=== PATIENT | female | born 1990 | race Caucasian/White ===

== ENCOUNTER → 2020-06-23 16:00 | Outpatient (CLI) | payer OTHER, SELFPAY ==
[2020-06-23 17:01] LABS: Add Manual Diff / Slide Review NO; Basophils Absolute Auto 0 /uL (0-100); Basophils Percent Auto 0.4 % (0-2); Eosinophils Absolute Auto 0 /uL (0-450); Eosinophils Percent Auto 0.6 % (2-4); Hematocrit 40.6 % (36-46); Hemoglobin 13.8 g/dL (12.0-16.0); Lymphocytes Absolute Auto 2200 /uL (1100-4500); Mean Corpuscular Hemoglobin 30.6 PG (26-34); Monocytes Absolute Auto 600 /uL (0-900); Monocytes Percent Auto 6.7 % (3-14); Neutrophils Absolute Auto 5500 /uL (1500-7000); Neutrophils Percent Auto 66.3 % (50-75); Platelet Count 292 X10^3/uL (150-400); Red Blood Cell Count 4.51 X10^6/uL (4.0-5.2); Red Cell Distribution Width 12.2 % (11.6-14.8); White Blood Cell Count 8.3 X10^3/uL (4.5-11.0)
[2020-06-23 17:24] LABS: Alanine Aminotransferase 12 IU/L (<35); Albumin 4.8 g/dL (3.5-5.0); Albumin Globulin Ratio 1.4 (1.0-2.8); Alkaline Phosphatase 55 U/L (38-126); Aspartate Aminotransferase 24 IU/L (14-36); Bilirubin Total 0.5 mg/dL (0.2-1.3); Blood Urea Nitrogen 13 mg/dL (7-17); Calcium 9.7 mg/dL (8.4-10.2); Carbon Dioxide 26 mmol/L (22-32); Chloride 106 mmol/L (98-107); Estimated Glomerular Filt Rate > 60.0 mL/min (>60); Globulin 3.5 g/dL (1.7-4.1); Glucose 94 mg/dL (70-100); HEMOLYSIS < 15 (0-50); Potassium 4.4 mmol/L (3.4-5.1); Sodium 137 mmol/L (137-145); Total Protein 8.3 g/dL (6.3-8.2)
[2020-06-23 17:44] LABS: Free T4, Direct Thyroxine 1.14 ng/dL (0.78-2.19)
[2020-06-23 17:58] LABS: Thyroid Stimulating Hormone 0.803 uIU/mL (0.47-4.68)
== END ==
PROVIDERS: PCP Registered Nurse; Referring Provider Registered Nurse; Visit Provider Registered Nurse
DX: R53.83 Other fatigue (principal)
CPT/HCPCS: 36415; 80053; 84439; 84443; 85025

== ENCOUNTER → 2020-06-29 07:21 | Outpatient (CLI) | payer OTHER, SELFPAY ==
--- NOTE | 2020-06-29 07:22 | DI.US.S_ITS ---
PROCEDURE: US PELVIC COMPLETE INDICATIONS: ABDOMINAL CRAMPING. ?ENDOMETRIOSIS. TECHNIQUE: Real-time scanning was performed of the pelvic organs, with image documentation. Additional endovaginal scanning was necessary due to incomplete visualization of the adnexal and endometrial structures by transabdominal scanning. COMPARISON: None. FINDINGS: Transabdominal scanning: Limited scanning through the kidneys shows no hydronephrosis. No pathologic free abdominal or pelvic fluid. Endovaginal scanning: Uterus/cervix: The uterus measures 7.0 x 4.7 x 2.6 centimeters. Endometrial thickness is 2.9 millimeters. No uterine fibroids. Several nabothian cysts are identified. Ovaries: The right ovary measures 3.6 x 3.2 x 2.4 centimeters. The right ovary has multiple cysts, the largest measuring 2.3 x 1.5 x 1.0 centimeters. The left ovary measures 3.9 x 2.6 x 1.8 centimeters. The left ovary has a subcentimeter follicle. Adnexa: No fluid in the adnexa. There is a complex ill-defined hypoechoic mass measuring 3.0 x 4.8 x 3.6 centimeters in the left lower quadrant seen separate from the ovary. This demonstrates no color flow within however is technically difficult to evaluate due to overlying bowel gas. Kidneys: The right kidney measures 11.6 centimeters in length. The left kidney measures 10.7 centimeters in length. There is no solid or cystic mass, hydronephrosis, or calculi. IMPRESSION: 1. Multiple large right ovarian cysts, largest measuring 2.3 x 1.5 x 1.0 centimeters. 2. Normal uterus and left ovary. 3. Possible ill-defined hypoechoic mass measuring 3.0 x 4.8 x 3.6 centimeters in the left lower quadrant, separate from the ovary. This is not well visualized and imaging is limited by overlying bowel gas. It is possible this could be a loop of bowel. Given correlation with patient's location of pain, recommend further imaging with CT of the pelvis. Dictated by: Clemente Desai M.D. on 06/29/2020 at 9:15 Approved by: Clemente Desai M.D. on 06/29/2020 at 9:26
== END ==
PROVIDERS: PCP Registered Nurse; Referring Provider Registered Nurse; Visit Provider Registered Nurse
DX: R10.9 Unspecified abdominal pain (principal); N80.9 Endometriosis, unspecified; N83.201 Unspecified ovarian cyst, right side; N88.8 Other specified noninflammatory disorders of cervix uteri
CPT/HCPCS: 76856

== ENCOUNTER → 2020-06-30 11:57 | Outpatient (CLI) | payer OTHER, SELFPAY ==
[2020-06-30 14:28] LABS: Cancer Antigen 125 13.5 U/mL (0-35)
== END ==
PROVIDERS: PCP Registered Nurse; Referring Provider Obstetrics & Gynecology; Visit Provider Obstetrics & Gynecology
DX: R19.00 Intra-abdominal and pelvic swelling, mass and lump, unspecified site (principal)
CPT/HCPCS: 36415; 86304

== ENCOUNTER 2020-07-07 01:30 | Emergency (ER) | payer OTHER, SELFPAY ==
--- NOTE | 2020-07-07 01:34 | ED_ITS ---
HPI - Abdominal Pain General Chief Complaint: Abdominal Pain Stated Complaint: ABDOMINAL PAIN X 1 MONTH Time Seen by Provider: 07/07/20 01:33 Source: patient and old records reviewed Mode of arrival: Ambulatory Limitations: no limitations History of Present Illness HPI narrative: This is a 29-year-old female comes with complaint of abdominal pain has been increasing over the past month. Patient states that it is intermittent. It starts kind of in the lower abdomen and then radiates throughout. She also has pain in her back. She states she had initially been worked up for back pain and even got which sounds like potentially a myelogram or facet injection. Patient states she had ultrasound imaging which showed a possible mass and she has felt like there was a mass in her lower abdomen as well. Patient has not fevers she does have nausea intermittently but denies vomiting. She has had constipated stools, no melena or hematochezia. No dysuria, she has had a sense of urgency and incomplete emptying but with only a small amount of urine, denies any vaginal bleeding or discharge. Patient states she has very irregular. Sometimes up to 2 monthly. She was being worked up possibly for endometriosis she had not had laparoscopic evaluation yet. She states her initial workup began in [place] and then she moved to this area where she is being followed by Rebecca Rodriguez. Patient denies any prior surgeries. Has a history of GERD and fibromyalgia. She states that she took ibuprofen 200 mg during the day. She states she does not normally take any pain medication. Related Data Previous Rx's Medication Instructions Recorded docusate sodium [Colace] 100 mg PO DAILY PRN #10 cap 07/07/20 Allergies Allergy/AdvReac Type Severity Reaction Status Date / Time No Known Drug Allergies Allergy Unverified 06/23/20 15:20 Review of Systems Review of Systems ROS Unobtainable: All systems reviewed & are unremarkable except as noted in HPI and below Patient History Social History Smoking Status: Former smoker Smoking Status: Former smoker Exam Narrative Exam Narrative: GENERAL: Alert and oriented x three, thin, well-appearing female in mild distress. HEENT: Head normocephalic, atraumatic, EOMI, pupils reactive, face symmetric, moist mucous membranes NECK: Supple, full range of motion CARDIOVASCULAR: Regular rate and rhythm without murmurs, rubs or gallops. RESPIRATORY: Breath sounds equal bilaterally, no wheezes rales or rhonchi. ABDOMEN: Soft, very mild tenderness in the left lower quadrant. Nondistended. Normoactive bowel sounds all 4 quadrants. No guarding or rebound, rigidity, no mass, no bruit. : No CVA tenderness EXTREMITIES: Normal range of motion, no clubbing or edema. Neurovascularly intact NEUROLOGICAL: Cranial nerves II through XII grossly intact. Moving all extremities SKIN: Warm, dry, no petechiae, no rashes or lesions. Initial Vital Signs Initial Vital Signs: Vital Signs Temperature 97.4 F L 07/07/20 01:40 Pulse Rate 82 07/07/20 01:40 Respiratory Rate 16 07/07/20 01:40 Blood Pressure 129/77 07/07/20 01:40 Pulse Oximetry 97 07/07/20 01:40 Course Orders Ordered: ED Orders 07/07/20 01:43 Complete Blood Count AUTO DIFF Stat Comprehensive Metabolic Panel Stat Lipase Stat 07/07/20 01:53 CT abdomen pelvis w con Stat Discontinued Medications Sodium Chloride (Normal Saline 0.9%) 1,000 mls @ 1,000 mls/hr IV BOLUS ONE Stop: 07/07/20 02:54 Last Admin: 07/07/20 02:39 Dose: 1,000 mls/hr Documented by: Vital Signs Vital signs: Vital Signs - 8 hr 07/07/20 01:40 Temperature 97.4 F L Pulse Rate 82 Respiratory Rate 16 Blood Pressure 129/77 Pulse Oximetry 97 MDM - Abdominal Pain Lab Data Attestation: I reviewed the patient's lab results. Result diagrams: 07/07/20 01:43 07/07/20 01:43 Labs: Lab Results 07/07/20 07/07/20 Range/Units 01:43 01:43 WBC 7.2 (4.5-11.0) X10^3/uL RBC 4.64 (4.0-5.2) X10^6/uL Hgb 13.8 (12.0-16.0) g/dL Hct 41.9 (36-46) % MCV 90.3 (80-100) fL MCH 29.6 (26-34) PG MCHC 32.8 (30-36) % RDW 12.1 (11.6-14.8) % Plt Count 279 (150-400) X10^3/uL Neut % (Auto) 52.0 (50-75) % Lymph % (Auto) 39.0 (25-40) % [place] % (Auto) 7.0 (3-14) % Eos % (Auto) 1.5 L (2-4) % Baso % (Auto) 0.5 (0-2) % Neut # (Auto) 3800 (1080-7012) /uL Lymph # (Auto) 2800 (2750-9864) /uL [place] # (Auto) 500 (0-900) /uL Eos # (Auto) 100 (0-450) /uL Baso # (Auto) 0 (0-100) /uL Sodium 138 (137-145) mmol/L Potassium 3.3 L (3.4-5.1) mmol/L Chloride 105 (98-107) mmol/L Carbon Dioxide 29 (22-32) mmol/L BUN 10 (7-17) mg/dL Creatinine 0.50 L (0.52-1.04) mg/dL Estimated GFR > 60.0 (>60) mL/min BUN/Creatinine Ratio 20.0 (6-22) Glucose 91 (70-100) mg/dL Calcium 9.3 (8.4-10.2) mg/dL Total Bilirubin 0.4 (0.2-1.3) mg/dL AST 24 (14-36) IU/L ALT 17 (<35) IU/L Alkaline Phosphatase 52 (38-126) U/L Total Protein 8.0 (6.3-8.2) g/dL Albumin 4.7 (3.5-5.0) g/dL Globulin 3.3 (1.7-4.1) g/dL Albumin/Globulin Ratio 1.4 (1.0-2.8) Lipase 174 (23-300) U/L Point of care testing: Point of Care Testing Test Results Negative Urine Dip Bedside Urine Glucose Negative Bedside Urine Bilirubin - Negative Bedside Urine Ketone - Negative Urine Specific [place] 1.010 Bedside Urine Occult Blood - Negative Bedside Urine pH 6.0 Bedside Urine Protein - Negative Bedside Urine Urobilinogen - Negative Bedside Urine Nitrite - Negative Bedside Urine Leukocytes - Negative Esterase Imaging Data CT scan - abdomen/pelvis: Radiologist's Impression: Complex cystic lesion or 2 adjacent cyst in the right adnexa, small amount of simple free fluid. It reaches the cervix is somewhat ill-defined and thickened, correlate with pelvic exam. Large amount of colonic stool. [facility] Narrative Medical decision making narrative: Patient imaging was reviewed and she had a pelvic ultrasound on 06/29/2020, showing multiple large right ovarian cysts the largest measuring 2.3 x 1.5 x 1 cm. Normal uterus and left ovary with a possible ill-defined hypoechoic mass measuring 3 x 4.8 x 3.6 cm in the left lower quadrant separate from the ovary it was not well visualized and imaging was limited by bowel gas. There was a possibly this could be a loop of bowel and was recommended further imaging with CT scan of the pelvis. Patient had labs which were negative including cbc, cmp and ca 125 antigen on 06/23 and 06/30 respectively. Patient is scheduled for a CT abd/pelvis today the and has been drinking barium but was in too much pain and came to the ER for imaging now and pain relief. Patient states pain improved on drive here and de fers any pain medication at this time. [facility] does not show any reports. Patient's CT abdomen pelvis shows right complex cystic lesion as well as a large amount of stool patient has been complaining of constipation. Recommended a stool softener, follow-up with property damage claims adjustor which she is in the process of setting up. Patient has only been taking 200 mg ibuprofen maximum so recommended to increase her dosage and can combine with Tylenol. Discharge Plan Departure Patient Disposition: Home Clinical Impression: Abdominal pain, Adnexal cyst Instructions: DI for Ovarian Cyst Activity Restrictions/Additional Instructions: There is a complex cystic structure in the right adnexa that was also visualized on your imaging earlier this month. I do recommend continuing with serial ultrasound imaging and following up with your care team. You may take Tylenol up to a 1000 mg every 8 hours and or ibuprofen up to 800 mg every 8 hours as needed for pain. I would recommend taking a stool softener such as Colace 100 mg once daily or increasing your fluid intake and fiber intake. Prescription to [facility] in [place]. Return to the ER for fevers, persistent vomiting, severe worsening pain, black o r bloody stools, inability to have a bowel movement or other new or concerning symptoms. Prescriptions: New docusate sodium [Colace] 100 mg capsule 100 mg PO DAILY PRN (Reason: constipation) Qty: 10 RF: 0 Referrals: Rebecca Rodriguez ARNP [Primary Care Provider] -
[2020-07-07 01:40] VITALS: BP 129/77; PULSE 82; RESP 16; TEMP 36.3; O2SAT 97; BMI 21.1
--- NOTE | 2020-07-07 01:53 | DI.CT.S_ITS ---
PROCEDURE: CT ABDOMEN PELVIS W CON INDICATIONS: abdominal pain, possible mass seen in the left pelvis on US imaging, right ovarian cyst TECHNIQUE: After the administration of oral and intravenous contrast, 5 mm thick sections acquired from the diaphragms to the symphysis. 5 mm thick coronal and sagittal reformats were performed. For radiation dose reduction, the following was used: automated exposure control, adjustment of mA and/or kV according to patient size. COMPARISON: [facility], US, US PELVIC COMPLETE, 06/29/2020, 8:03. FINDINGS: Image quality: Excellent. ABDOMEN: Lung bases: Lung bases are clear. Heart size is normal. Solid organs: Evaluation of the liver demonstrates no focal hepatic lesions. The gallbladder appears within normal limits without calcified gallstones. Biliary system is non-dilated. Pancreas enhances normally. No peripancreatic fat stranding or fluid collections. No pancreatic duct dilatation. The spleen is normal in size. No adrenal nodules. Kidneys demonstrate no hydronephrosis. Peritoneum and bowel: Stomach, small bowel, and colon loops are normal in caliber and wall thickness. No evidence of appendicitis. There is a small amount of free fluid in the pelvis which appears within physiologic limits. Nodes and vessels: No retroperitoneal or mesenteric adenopathy. Aorta and inferior vena cava are normal in caliber. Miscellaneous: No ventral hernias. PELVIS: Genitourinary: Bladder wall thickness is normal. There is soft tissue fullness in the region of the cervix. Small nabothian cysts are noted. There is a septated cyst or 2 adjacent cysts within the right ovary measuring up to 3.1 x 2.1 cm in dimension. No discrete left pelvic mass identified to correlate with the finding on ultrasound which may have reflected a bowel loop. Miscellaneous: No inguinal hernias or adenopathy. Bones: No suspicious bony lesions. No vertebral body compression fractures. IMPRESSION: 1. Right adnexal septated cyst or clustered cysts. Findings are nonspecific but likely represent physiologic cysts. 2. No discrete left pelvic mass identified. Consider a follow-up pelvic ultrasound in 6 weeks to demonstrate resolution of right adnexal cysts and previous left pelvic finding. 3. Soft tissue fullness in the region of the cervix is nonspecific but may reflect physiologic changes. Recommend correlation with clinical exam. Or Dictated by: Justin Suarez M.D. on 07/07/2020 at 8:53 Approved by: Justin Suarez M.D. on 07/07/2020 at 9:05
[2020-07-07 01:57] LABS: Add Manual Diff / Slide Review NO; Basophils Absolute Auto 0 /uL (0-100); Basophils Percent Auto 0.5 % (0-2); Eosinophils Absolute Auto 100 /uL (0-450); Eosinophils Percent Auto 1.5 % (2-4); Hematocrit 41.9 % (36-46); Hemoglobin 13.8 g/dL (12.0-16.0); Lymphocytes Absolute Auto 2800 /uL (1100-4500); Mean Corpuscular HGB Conc 32.8 % (30-36); Mean Corpuscular Hemoglobin 29.6 PG (26-34); Mean Corpuscular Volume 90.3 fL (80-100); Monocytes Absolute Auto 500 /uL (0-900); Neutrophils Absolute Auto 3800 /uL (1500-7000); Platelet Count 279 X10^3/uL (150-400); Red Blood Cell Count 4.64 X10^6/uL (4.0-5.2); Red Cell Distribution Width 12.1 % (11.6-14.8); White Blood Cell Count 7.2 X10^3/uL (4.5-11.0)
[2020-07-07 02:08] LABS: Alanine Aminotransferase 17 IU/L (<35); Albumin 4.7 g/dL (3.5-5.0); Albumin Globulin Ratio 1.4 (1.0-2.8); Alkaline Phosphatase 52 U/L (38-126); Aspartate Aminotransferase 24 IU/L (14-36); Bilirubin Total 0.4 mg/dL (0.2-1.3); Blood Urea Nitrogen 10 mg/dL (7-17); Calcium 9.3 mg/dL (8.4-10.2); Carbon Dioxide 29 mmol/L (22-32); Chloride 105 mmol/L (98-107); Estimated Glomerular Filt Rate > 60.0 mL/min (>60); Globulin 3.3 g/dL (1.7-4.1); Glucose 91 mg/dL (70-100); HEMOLYSIS < 15 (0-50); Lipase 174 U/L (23-300); Potassium 3.3 mmol/L (3.4-5.1); Sodium 138 mmol/L (137-145)
[2020-07-07] MEDS: SODIUM CHLORIDE 0.9% 1,000 ML 1000 ML IV (02:39)
[2020-07-07 03:25] VITALS: BP 126/74; PULSE 77; RESP 16; O2SAT 97
== END 2020-07-07 03:39 | disposition home or self-care (01) ==
PROVIDERS: Emergency Provider Emergency Medicine; PCP Registered Nurse
DX: N83.201 Unspecified ovarian cyst, right side (principal); R10.9 Unspecified abdominal pain; M54.9 Dorsalgia, unspecified; R11.0 Nausea; K21.9 Gastro-esophageal reflux disease without esophagitis; M79.7 Fibromyalgia
CPT/HCPCS: 36415; 74177; 80053; 81003; 81025; 83690; 85025; 96360; 99283; 99284; 99285; Q9967

== ENCOUNTER → 2020-09-05 08:49 | Outpatient (CLI) | payer OTHER, SELFPAY ==
[2020-09-05 09:18] LABS: COVID19 -Nasal RAPID Negative (Negative)
== END ==
PROVIDERS: PCP Registered Nurse; Visit Provider Obstetrics & Gynecology
DX: Z01.812 Encounter for preprocedural laboratory examination (principal); Z20.822 Contact with and (suspected) exposure to COVID-19
CPT/HCPCS: 87635

== ENCOUNTER 2020-09-06 08:33 | Day surgery (SDC) | payer OTHER, SELFPAY ==
[2020-09-06] VITALS (10 sets, daily range): BP systolic 112–125; BP diastolic 66–76; PULSE 55–89; RESP 10–16; TEMP 36.4–37; O2SAT 99–100; BMI 22.4
--- NOTE | 2020-09-06 09:41 | P.HP_ITS ---
History of Present Illness History of Present Illness Date Patient Seen: 09/06/20 Time Patient Seen: 09:41 Chief complaint: SDC Narrative: Patient is a 29-year-old 0 who presents for a diagnostic laparoscopy with excision of right ovarian cyst and possible fulguration of endometriosis. This is being done due to an ovarian cyst seen on ultrasound. Also the patient has had pelvic pain with pain with bowel movements and with emptying of her bladder. This pain is worse with her menstrual cycle. There is no chance that the patient is today. Patient History Medical History Chronic back pain Fibromyalgia Rheumatoid arthritis Surgical History [place] teeth extracted Family & Social History Family History Mother Hypertension Grandfather Cancer Grandmother Cancer Melanoma Social History: household members spouse,family Tobacco & Substance use: Smoking Status Former smoker alcohol intake current alcohol intake frequency 0-2 drinks per day Substance Use Type does not use Meds Home Medications and Allergies Home Medications Medication Instructions Recorded Confirmed Type ondansetron 4 mg disintegrating 4 mg PO Q6H PRN #20 tab 09/05/20 09/06/20 Rx tablet Allergies Allergy/AdvReac Type Severity Reaction Status Date / Time diphenhydramine AdvReac ITCHING Verified 09/06/20 09:09 [From Benadryl] Exam Vital Signs (past 8 hours): - 09/06/20 09:11 Temperature 98.6 F Pulse Rate 73 Respiratory Rate 16 Blood Pressure 112/73 Pulse Oximetry 100 Oxygen Delivery Method Room Air Oxygen Flow Rate 0 Narrative Exam Narrative: HEENT: No thyromegaly, no anterior cervical or supraclavicular lymphadenopathy. Lungs:Clear to auscultation bilaterally, no wheezes. Cardiovascular: Regular rate and rhythm, no murmurs, rubs, or gallops. Abdomen: No scars. No hepatosplenomegaly. No masses palpable. External genitalia: Normal Vagina: Normal Cervix: Normal Bimanual exam: 6 Week size anteverted uterus. Mobile. Bilateral uterus sacral tenderness. Right adnexal tenderness. Rectal: No masses. Assessment & Plan Assessment & Plan narrative: Assessment: 29-year-old 0 with a right ovarian cyst and pelvic pain and dysmenorrhea Plan: Diagnostic laparoscopy with excision of right ovarian cyst and possible fulguration of endometriosis The risks, benefits, and alternatives to the procedure were explained to the patient. The risks including bleeding, infection, injury to the bowel, bladder, or ureters. She understands these risks and agrees to proceed. A full par Q was held and consent form was signed. COVID-19 COVID-19 status: Negative Result date/Date tested (Pos, Neg/Pending): 09/05/20 Time Spent With Patient Time with patient: 15-24 minutes
[2020-09-06] MEDS: LACTATED RINGERS 1,000 ML 100 ML IV ×2 (09:42→10:53)
--- NOTE | 2020-09-06 09:45 | PM.PREOP ---
Pre-operative Note COVID-19 COVID-19 status: Negative Result date/Date tested (Pos, Neg/Pending): 09/05/20 Interval Note History & Physical reviewed/Exam performed by Physician: Yes Changes to H&P: No H&P completed within 30 days and has changed as indicated here:: 09/06/20
[2020-09-06] MEDS: BUPIVACAINE 0.5% W/ EPI (PF) 30 ML VIAL INJ (10:38)
--- NOTE | 2020-09-06 11:07 | PM.GYNOP.1 ---
Operative Date/Time/Diagnoses Date of procedure: 09/06/20 Time of procedure: 11:07 Pre-op diagnosis: Pelvic pain Ovarian cysts Post-op diagnosis: same Procedure & Clinicians Procedure: Procedures Operation Date: 09/06/20 09:45 Actual Procedures Side Surgeon p AMBER Laparoscopy, removal of right ovarian cyst Maria Fernanda Garcia MD Indications: Ovarian cysts Pelvic pain Surgeon: Maria Fernanda Garcia Anesthesia Type: General and Local Operative Notes Findings: Six week size anteverted uterus Small right paratubal cyst Two left ovarian cyst, 1 measuring 3 cm, the other measuring 2 cm. These were simple in nature. Normal 2 Normal uterus Normal liver and gallbladder Normal appendix No evidence of endometriosis No evidence of adhesions Closure Type: primary Specimen(s): none Estimated blood loss (mL): 3 Blood products transfused: none Procedure in detail: After informed consent was obtained, the patient was taken to the operating room where she was placed in the dorsal supine position. After adequate general endotracheal anesthesia was achieved, she was placed in the dorsal lithotomy position, and prepped and draped in the usual sterile fashion. A time-out was performed. A bivalve speculum was placed into the vagina and the anterior lip of the cervix was grasped with a single-tooth tenaculum. Cervical os was sequentially dilated until the Zumi uterine manipulator could pass easily into the endometrial cavity. Single-tooth tenaculum was removed from the anterior lip of the cervix. The bivalve speculum was removed from the vagina. Attention was then turned to the abdomen where 6 cc of 0.5% Marcaine with epinephrine were injected in the umbilical fold. A 5 mm incision was made. The Veress needle was placed into the peritoneal cavity, and its placement confirmed by aspiration and drop test. The abdominal cavity was insufflated with 3.8 L of CO2. The Veress needle was removed, and a 5 mm trocar was placed without difficulty. Two other 5 mm incisions were made after 6 cc of 0.5% Marcaine with epinephrine were injected. These incisions were 4 cm lateral to the midline at the level of the umbilicus. Two 5 mm trocars were placed under direct visualization. The probe was used to identify both tubes and ovaries as well as the ovarian fossa. There was a small para tubal cyst on the right. This was cauterized and collapsed with the PlasmaKinetic. The gallbladder, liver, and appendix were visualized and were normal. There was no evidence of endometriosis in the anterior or posterior cul-de-sac or bilateral ovarian fossa. On the left ovary there were 2 cysts. These were drained with point aspiration. Using the PlasmaKinetic the cyst taveras were cauterized until the collapsed. Hemostasis was achieved. The pelvis was irrigated with warm normal saline. There was no bleeding noted. The instruments were removed from the abdomen. The CO2 was allowed to escape. The trocars were removed. The incisions were repaired with 4 0 Biosyn in a subcuticular fashion. Steri-Strips and Allevyn dressings were placed. The Zumi uterine manipulator was removed from the uterus. Sponge, lap, and instrument counts were correct x2. The patient tolerated the procedure well, was taken to PACU in stable condition. Complications: none Post-operative Condition: stable Disposition: PACU Plan for aftercare: Home after recovery
--- NOTE | 2020-09-06 11:09 | SUR.OPER ---
Lithotomy on padded OR bed, head on pillow, arms secured on padded arm boards at <90 degrees abduction. Legs secured in padded yellow fins stirrups.
[2020-09-06] MEDS: ONDANSETRON 4 MG/2 ML INJ IV (11:16)
[2020-09-06] MEDS: HYDROMORPHONE 2 MG INJ IV (11:17)
[2020-09-06] MEDS: OXYCODONE/ACETAMINOPHEN 5/325 TABLET 1 TAB PO (11:40)
--- NOTE | 2020-09-06 13:04 | SUR.PHASEII ---
patient c/o epigastric pain radiating up to sternal area and right shoulder, described as tightness. vss, 117/72 hr 60, 99% on ra. denies sob. Dr. Garcia notified of same. attributes to CO2 gas, no other interventions or orders needed.
== END 2020-09-06 12:48 | disposition home or self-care (01) ==
PROVIDERS: PCP Registered Nurse; Referring Provider Registered Nurse; Visit Provider Obstetrics & Gynecology
PROC: (CPT 58662; principal; 2020-09-06 09:45)
DX: N83.201 Unspecified ovarian cyst, right side (principal); N83.202 Unspecified ovarian cyst, left side; N83.8 Other noninflammatory disorders of ovary, fallopian tube and broad ligament; M79.7 Fibromyalgia
CPT/HCPCS: 58662; 81025; J1100; J1170; J1885; J2250; J2405; J2704; J3010

== ENCOUNTER → 2020-11-15 08:56 | Outpatient (CLI) | payer OTHER, SELFPAY ==
--- NOTE | 2020-11-15 08:57 | DI.US.S_ITS ---
PROCEDURE: US RENAL COMPLETE INDICATIONS: Bladder pain, frequency TECHNIQUE: Real-time scanning was performed of the kidneys and bladder, with image documentation. COMPARISON: [facility], CT, CT ABDOMEN PELVIS W CON, 07/07/2020, 1:59. FINDINGS: Kidneys: Kidneys are normal in size. Right kidney measures 10.9 cm long; left kidney measures 10.3 cm long. Right renal cortical thickness is 1.5 cm; left renal cortical thickness is 1.6 cm. Renal cortical echotexture is normal. No hydronephrosis or nephrolithiasis. No suspicious solid mass lesions. A right-sided column of [place] can be seen. Bladder: Pre-void bladder volume is 467 mL. Post-void residual is 20 mL. Pre-void images demonstrate no intraluminal masses or stones. On pre-void images, both ureteral jets are noted with color Doppler interrogation. (Of note, ureteral jets may not be detectable in up to 25% of cases due to insufficient differences in specific gravity between ureteral and bladder urine). Miscellaneous: No free pelvic fluid. There is a 1.8 cm right ovarian cystic follicle seen, which is considered to be within physiologic limits. IMPRESSION: Negative for hydronephrosis. Small postvoid residual, 20 cc. Dictated by: Som Guadarrama M.D. on 11/15/2020 at 11:54 Approved by: Som Guadarrama M.D. on 11/15/2020 at 12:03
== END ==
PROVIDERS: Family Provider Registered Nurse; PCP Registered Nurse; Referring Provider Registered Nurse; Visit Provider Registered Nurse
DX: R39.89 Other symptoms and signs involving the genitourinary system (principal)
CPT/HCPCS: 76770

== ENCOUNTER 2020-12-22 11:15 | Outpatient (RCR) | payer OTHER, SELFPAY ==
--- NOTE | 2020-10-11 17:22 | PT.OPPOC ---
Addendum entered and electronically signed by Katie Meier, PT 10/13/20 09:28: . Original Note: Physical, Occupational & Speech Therapy At [facility] Current Diagnoses Stiffness of right hip, not elsewhere classified (10/11/20) Stiffness of left hip, not elsewhere classified (10/11/20) Other specified disorders of muscle (10/11/20) Lower abdominal pain, unspecified (10/11/20) Abnormal posture (10/11/20) Visit Care Team Role Provider Type SARAH Kwong Family Provider Advanced Cover Inspector Primary Care Provider Specialty: Medical Address: [address] [place] [address], [facility] Email: [email or web address] Maria Fernanda Garcia MD Attending Provider Physician Referring Provider Specialty: Gynecology CELLO TEACHER Obstetrics Address: [address] [place] [address], [id number] Email: [email or web address] Plan Of Care PT-OP-T Assessment and Plan Start: 10/07/20 18:56 Freq: Status: Active Protocol: Document 10/11/20 14:19 LRN (Rec: 10/11/20 15:11 LRN [id number]) Physical Therapy Assessment Rehab Potential Rehabilitation Potential Good Evaluation Complexity Number of Personal Factors/Comorbidities 1-2 Number of Body Systems Impaired 4 or More Clinical Presentation at Evaluation Evolving Impairments Impairments Activity Tolerance,Posture,ROM ,Soft Tissue Mobility,Strength ,Transfers Goals Three Impairment Pain interferring with sleeping at night (wakes 4x/ night to void) Short Term Goal (STG) Decrease times voiding at nighttime. STG Duration 11/18/20 Fdc Goal (LTG) Improve ability to more easily fall back to sleep at night using relaxation techniques. LTG Duration 01/09/21 Two Impairment Pelvic pain (constant, rated 4 /10). Short Term Goal (STG) Decrease PF pain in the morning 50%. STG Duration 11/18/20 Fdc Goal (LTG) Elimination PF pain. LTG Duration 01/09/21 One Impairment Pt lacks appropriate self care HEP Short Term Goal (STG) Pt will be independent in PF stretches. STG Duration 10/28/20 Office Runner Goal (LTG) Pt will be independent in a self care HEP of hip stretches and core/hip stabilization. LTG Duration 01/09/21 Assessment Summary Assessment Pt is a 29 yo female who was at the end of her menstrual cycle; therefore I was not able to visually and physically assess her pelvic floor. The pt is agreeable to a physical PF assessment at her next appointment. She does have soft tissue dysfunction of her hip muscles (although she appeared to have good symmetry of her hip mobility) and soft tissue dysfunction of the abdominal muscles. The pt will benefit from skilled physical therapy for soft tissue mobilization, therapeutic activity, therapeutic exercise, downtraining of ANS, bowel and bladder care education, and education in self long term exercises and general care. Physical Therapy Plan Frequency and Duration Frequency of Treatment 1x/Week Plan of Care Start Date 10/11/20 Plan of Care End Date 01/09/21 Therapeutic Interventions Therapeutic Interventions Home Exercise Program,Joint Mobilizations,Manual Therapy, Neuromuscular Re-education, Patient/Caregiver Education, Self-Care/Home Management,Soft Tissue Mobilization, Therapeutic Activities, Therapeutic Exercises Modalities Biofeedback,Cold Pack/Ice Massage,Electric Stimulation, Hot Packs Next Visit Focus/Plan Next Note Type Treatment Note Next Visit Plan Review Bladder Diary and recommend changes as necessary . External & Internal PF assessment. Introduce dilator and self stretch techniques if appropriate. Educate and issue HEP of hip mobility ex's (AD's and rotators), PF stretches, stabilizatioin exercises (core and pelvis). PF ms awareness for relaxation (and possibly contraction) using biofeedback Soft tissue mobilization, therapeutic activity, therapeutic exercise, downtraining of ANS, and pt education in PF self care. Plan of Care Dates Plan of Care Start Date 10/11/20 Plan of Care End Date 01/09/21 Electronically Signed by: Katie Meier, PT 10/13/20 0983 Please Sign and Return: I have reviewed this Plan of Care and certify that the skilled therapy services above are required to meet the patient?s needs. Physician Signature Date Printed Name and Credentials Clinical Instructor Signature Printed Name and Credentials
--- NOTE | 2020-10-11 17:22 | PT.OIE ---
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 Provider Specialty: Medical Address: [address] [place] [address] Email: [email or web address] Maria Fernanda Garcia MD Attending Provider Physician Referring Provider 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 Address: [address] [place] [address], [id number] Email: [email or web address] Physical Therapy Initial Evaluation PT-OP-A Visit Information Start: 10/07/20 18:56 Freq: Status: Active Protocol: Document 10/11/20 14:19 LRN (Rec: 10/11/20 15:11 LRN [id number]) Out-Patient Physical Therapy Visit Information Visit Information Visit Type Initial Evaluation Visit Start Time 14:20 Visit Stop Time 15:10 Total Visit Minutes 50 Visit Number 1 Evaluation Information Evaluation Date 10/11/20 Precautions Precautions Back pain from possibly DDD - since 15 yrs old, Fibromylagia - 2017, Rheumatoid Arthritis - 18 yrs old. PT-OP-B Current Condition Start: 10/07/20 18:56 Freq: Status: Active Protocol: Document 10/11/20 14:19 LRN (Rec: 10/11/20 15:11 LRN [id number]) Current Condition History of Current Condition Onset Date Aug 2019 Current Complaints PF pain, constant dull ache that increases randomly. History of Current Condition In Aug, periods were getting worse (2x/month) and that in the area of her ovaries she was having more pain. Has always had pain with periods, but now was having pain all the time. Pt is not able to recall any incident related to her pain onset. Has been eating a lot of soy and wonders if the increase in estrogen is related. Pt states she tries to stay very active, which helps her to ignore the pain. States the pain is effecting her sleep. When lying down she feels the pain the most. The urgency to urinate, after she voids at night she has pain not only in the PF but in the lower abdomen. Has had urgency her whole life. Has not had PF rehabilition (PT was for fibromyalgia and chronic pain) . Prior Treatments and Tests She reports having had a cortisone injection inside her vagina that she states changed nothing. She has also had steroids injected into the bladder and immediately developed urgency. Developmental History Developmental History Pt reports having pelvic floor pain that started before surgery (09/06/20) to remove cyst from ovaries and to check for endometriosis. She had the cyst removed and was found not to have endometriosis. Pt lives in [place], moved to [place] at end of 2019 from [place]. Had been in [place] for 4 yrs, and has had severe anxiety and depression, and felt her body felt worse than it had ever been and was eventually diagnosed with fibromalgia. She has a history of being stung by a Sting Ray that got infected and was being treated for it. She has tried a change in diet and exercise. Doesn't think she was feeling stressed therefore she doesn' t feel her problem is mental related. Treatment Goals Patient/Caregiver Goals Elimination of PF pain. Improve ability to sleep at night. Learn what is causing her pain . Prior Functional Status Baseline Function- ADL's Independent Baseline Function- Mobility Independent Baseline Function- Work/School . Baseline Function- Other Would wake up 4x/night due to urgency, without PF pain. Current Functional Impairments (Reported) Functional Limitations- ADL's Sleeping: wakes 4x/night to use bathroom. Has with it urgency and PF pain. Functional Limitations- Recreation/ Hiking and walking and Hobbies aerobics (1hr of each), yoga at night. Personal Factors Other Personal Factors That May Effect Spouse is in the and Therapy/Recovery deployed. Expected back in January and then will be stationed in [place]. Hx of Rheumatoid Arthritis, back pain, Fibromyalgia, & urinary urgency. PT-OP-C Subjective Start: 10/07/20 18:56 Freq: Status: Active Protocol: Document 10/11/20 14:19 LRN (Rec: 10/11/20 15:11 LRN [id number]) Patient Questionnaires Pelvic Pain and Urgency/Frequency Patient Symptom Scale Pelvic Pain Score 21 OP-PT Pain Assessment Location PF Pain Location Details PF Intensity 4 Scale Used Numeric (0 - 10) Description Cramping,Dull,Pinching,Sharp Description- Other At rest: Heavy feeling with cramping, daytime more dull. Frequency Constant Pain Alleviating Factors Heat Other Pain Alleviating Factors Holy Basil Tea, yoga stretching. PT-OP-J Posture/Palpation/Skin Start: 10/07/20 18:56 Freq: Status: Active Protocol: Document 10/11/20 14:19 LRN (Rec: 10/11/20 15:11 LRN [id number]) Posture Evaluation Position Standing T-Spine Posture Flattened L-Spine Posture Increased Lordosis Shoulder Posture (L) Elevated Comments Posture Comments R PSIS higher Mild scoliosis of spine: [place] on R upper T/S & L lower T/S. PT-OP-K Range of Motion Start: 10/07/20 18:56 Freq: Status: Active Protocol: Document 10/11/20 14:19 LRN (Rec: 10/11/20 15:11 LRN [id number]) Lumbar Spine Range of Motion Lumbar Spine Active Percentage Flexion 100 Extension 100 Rotation Left 75 Rotation Right 100 Lateral Flexion Left 100 Lateral Flexion Right 90 Hip Goniometric Range of Motion Hip Right Passive Testing Position Supine Straight Leg Raise 90 Abduction 20 Internal Rotation 34 External Rotation 65 Left Passive Testing Position Supine Straight Leg Raise 90 Abduction 30 Internal Rotation 35 External Rotation 65 PT-OP-M Strength Start: 10/07/20 18:56 Freq: Status: Active Protocol: Document 10/11/20 14:19 LRN (Rec: 10/11/20 15:11 LRN [id number]) Trunk Strength Trunk Manual Muscle Testing Testing Position Supine Core Stabilization Loss of core stability (trunk rotated towards testing side) with MMT of hip flexion bilaterally Hip Strength Hip Manual Muscle Testing Right Comments Generally 5/5 Left Comments Generally 5/5 PT-OP-Q Treatments Start: 10/07/20 18:56 Freq: Status: Active Protocol: Document 10/11/20 14:19 LRN (Rec: 10/11/20 15:11 LRN [id number]) Self-Care/Home Management Treatment Education Patient Education Home Exercise Program Other Education Discussed results of the evaluation, goals, and plan of care. Activities Self-Care/Home Management Activities Issued and explained completion of Bladder diary by pt over the next week. Reviewed Deep Breathing with pt I/S to work on increasing breathing time to 6 sec inhales/exhales. PT-OP-T Assessment and Plan Start: 10/07/20 18:56 Freq: Status: Active Protocol: Document 10/11/20 14:19 LRN (Rec: 10/11/20 15:11 LRN [id number]) Physical Therapy Assessment Rehab Potential Rehabilitation Potential Good Evaluation Complexity Number of Personal Factors/Comorbidities 1-2 Number of Body Systems Impaired 4 or More Clinical Presentation at Evaluation Evolving Impairments Impairments Activity Tolerance,Posture,ROM ,Soft Tissue Mobility,Strength ,Transfers Goals Three Impairment Pain interferring with sleeping at night (wakes 4x/ night to void) Short Term Goal (STG) Decrease times voiding at nighttime. STG Duration 11/18/20 Community Service Aide Goal (LTG) Improve ability to more easily fall back to sleep at night using relaxation techniques. LTG Duration 01/09/21 Two Impairment Pelvic pain (constant, rated 4 /10). Short Term Goal (STG) Decrease PF pain in the morning 50%. STG Duration 11/18/20 Community Service Aide Goal (LTG) Elimination PF pain. LTG Duration 01/09/21 One Impairment Pt lacks appropriate self care HEP Short Term Goal (STG) Pt will be independent in PF stretches. STG Duration 10/28/20 Retirement Goal (LTG) Pt will be independent in a self care HEP of hip stretches and core/hip stabilization. LTG Duration 01/09/21 Assessment Summary Assessment Pt is a 29 yo female who was at the end of her menstrual cycle; therefore I was not able to visually and physically assess her pelvic floor. The pt is agreeable to a physical PF assessment at her next appointment. She does have soft tissue dysfunction of her hip muscles (although she appeared to have good symmetry of her hip mobility) and soft tissue dysfunction of the abdominal muscles. The pt will benefit from skilled physical therapy for soft tissue mobilization, therapeutic activity, therapeutic exercise, downtraining of ANS, bowel and bladder care education, and education in self alf exercises and general care. Physical Therapy Plan Frequency and Duration Frequency of Treatment 1x/Week Plan of Care Start Date 10/11/20 Plan of Care End Date 01/09/21 Therapeutic Interventions Therapeutic Interventions Home Exercise Program,Joint Mobilizations,Manual Therapy, Neuromuscular Re-education, Patient/Caregiver Education, Self-Care/Home Management,Soft Tissue Mobilization, Therapeutic Activities, Therapeutic Exercises Modalities Biofeedback,Cold Pack/Ice Massage,Electric Stimulation, Hot Packs Next Visit Focus/Plan Next Note Type Treatment Note Next Visit Plan Review Bladder Diary and recommend changes as necessary . External & Internal PF assessment. Introduce dilator and self stretch techniques if appropriate. Educate and issue HEP of hip mobility ex's (AD's and rotators), PF stretches, stabilizatioin exercises (core and pelvis). PF ms awareness for relaxation (and possibly contraction) using biofeedback Soft tissue mobilization, therapeutic activity, therapeutic exercise, downtraining of ANS, and pt education in PF self care.
--- NOTE | 2020-10-21 17:54 | PT.OTN ---
Current Diagnoses Stiffness of right hip, not elsewhere classified (10/21/20) Stiffness of left hip, not elsewhere classified (10/21/20) Other specified disorders of muscle (10/21/20) Lower abdominal pain, unspecified (10/21/20) Abnormal posture (10/21/20) Physical Therapy Treatment Note PT-OP-A Visit Information Start: 10/07/20 18:56 Freq: Status: Active Protocol: Document 10/21/20 14:23 LRN (Rec: 10/21/20 15:15 LRN [id number]) Out-Patient Physical Therapy Visit Information Visit Information Visit Type Treatment Note Visit Start Time 14:23 Visit Stop Time 15:13 Total Visit Minutes 50 Visit Number 2 Evaluation Information Evaluation Date 10/11/20 Precautions Precautions Back pain from possibly DDD - since 15 yrs old, Fibromylagia - 2016, Rheumatoid Arthritis - 18 yrs old. PT-OP-B Current Condition Start: 10/07/20 18:56 Freq: Status: Active Protocol: Document 10/11/20 14:19 LRN (Rec: 10/11/20 15:11 LRN [id number]) Current Condition History of Current Condition Onset Date Aug 2019 Current Complaints PF pain, constant dull ache that increases randomly. History of Current Condition In Aug, periods were getting worse (2x/month) and that in the area of her ovaries she was having more pain. Has always had pain with periods, but now was having pain all the time. Pt is not able to recall any incident related to her pain onset. Has been eating a lot of soy and wonders if the increase in estrogen is related. Pt states she tries to stay very active, which helps her to ignore the pain. States the pain is effecting her sleep. When lying down she feels the pain the most. The urgency to urinate, after she voids at night she has pain not only in the PF but in the lower abdomen. Has had urgency her whole life. Has not had PF rehabilition (PT was for fibromyalgia and chronic pain) . Prior Treatments and Tests She reports having had a cortisone injection inside her vagina that she states changed nothing. She has also had steroids injected into the bladder and immediately developed urgency. Developmental History Developmental History Pt reports having pelvic floor pain that started before surgery (09/06/20) to remove cyst from ovaries and to check for endometriosis. She had the cyst removed and was found not to have endometriosis. Pt lives in [place], moved to [place] at end of 2019 from [place]. Had been in [place] for 4 yrs, and has had severe anxiety and depression, and felt her body felt worse than it had ever been and was eventually diagnosed with fibromalgia. She has a history of being stung by a Sting Ray that got infected and was being treated for it. She has tried a change in diet and exercise. Doesn't think she was feeling stressed therefore she doesn' t feel her problem is mental related. Treatment Goals Patient/Caregiver Goals Elimination of PF pain. Improve ability to sleep at night. Learn what is causing her pain . Prior Functional Status Baseline Function- ADL's Independent Baseline Function- Mobility Independent Baseline Function- Work/School . Baseline Function- Other Would wake up 4x/night due to urgency, without PF pain. Current Functional Impairments (Reported) Functional Limitations- ADL's Sleeping: wakes 4x/night to use bathroom. Has with it urgency and PF pain. Functional Limitations- Recreation/ Hiking and walking and Hobbies aerobics (1hr of each), yoga at night. Personal Factors Other Personal Factors That May Effect Spouse is in the and Therapy/Recovery deployed. Expected back in January and then will be stationed in [place]. Hx of Rheumatoid Arthritis, back pain, Fibromyalgia, & urinary urgency. PT-OP-C Subjective Start: 10/07/20 18:56 Freq: Status: Active Protocol: Document 10/21/20 14:23 LRN (Rec: 10/21/20 15:15 LRN [id number]) OP-PT Subjective Patient Comments Patient Comments Pain is more often. PT-OP-I Pelvic Floor Start: 10/07/20 18:56 Freq: Status: Active Protocol: Document 10/21/20 14:23 LRN (Rec: 10/21/20 17:54 LRN [id number]) Pelvic Floor Assessment Pelvic Clock Pelvic Clock Other Tender at 2-4 of PF Clock Perineal Descent Resting Absent Bearing Absent Contraction Ability Manual Muscle Testing Left 3 Manual Muscle Testing Right 3 Manual Muscle Testing Anterior 3 Manual Muscle Testing Posterior 3 Comments Pelvic Floor Comments Pt not able to tolerate 10 Quick Contractions with assessment using digit in vaginal canal. Pt was able to maintain a PF contraction for 10 secs with mild decrease in strength after 4 secs. PT-OP-J Posture/Palpation/Skin Start: 10/07/20 18:56 Freq: Status: Active Protocol: Document 10/11/20 14:19 LRN (Rec: 10/11/20 15:11 LRN [id number]) Posture Evaluation Position Standing T-Spine Posture Flattened L-Spine Posture Increased Lordosis Shoulder Posture (L) Elevated Comments Posture Comments R PSIS higher Mild scoliosis of spine: [place] on R upper T/S & L lower T/S. PT-OP-K Range of Motion Start: 10/07/20 18:56 Freq: Status: Active Protocol: Document 10/11/20 14:19 LRN (Rec: 10/11/20 15:11 LRN [id number]) Lumbar Spine Range of Motion Lumbar Spine Active Percentage Flexion 100 Extension 100 Rotation Left 75 Rotation Right 100 Lateral Flexion Left 100 Lateral Flexion Right 90 Hip Goniometric Range of Motion Hip Right Passive Testing Position Supine Straight Leg Raise 90 Abduction 20 Internal Rotation 34 External Rotation 65 Left Passive Testing Position Supine Straight Leg Raise 90 Abduction 30 Internal Rotation 35 External Rotation 65 PT-OP-M Strength Start: 10/07/20 18:56 Freq: Status: Active Protocol: Document 10/11/20 14:19 LRN (Rec: 10/11/20 15:11 LRN [id number]) Trunk Strength Trunk Manual Muscle Testing Testing Position Supine Core Stabilization Loss of core stability (trunk rotated towards testing side) with MMT of hip flexion bilaterally Hip Strength Hip Manual Muscle Testing Right Comments Generally 5/5 Left Comments Generally 5/5 PT-OP-Q Treatments Start: 10/07/20 18:56 Freq: Status: Active Protocol: Document 10/21/20 14:23 LRN (Rec: 10/21/20 15:15 LRN [id number]) Therapeutic Exercises Supine Exercises Long Holds Supine Exercise Name Long Holds Reps/Minutes 4' Comments Pain with contraction with digit in vaginal canal Quick Flicks Supine Exercise Name Quick Flicks Reps/Minutes 6' Comments Pain with contraction with digit in vaginal canal Manual Therapy Treatment Soft Tissue Mobilization PF Body Location PF stretching I/S with dilator Self-Care/Home Management Treatment Education Patient Education Pain Management Other Education Extended discussion of results of bladder diary (fluids amt & types, drinking time, times of voids, times between voids, mechanism of drinking/sipping , etc) Education in use of Small dilator. Activities Self-Care/Home Management Activities Issued & reviewed handouts: Pelvic anatomy, Foods & Beverages Bladder Diet Suggestions, Issued Small dilator. PT-OP-T Assessment and Plan Start: 10/07/20 18:56 Freq: Status: Active Protocol: Document 10/21/20 14:23 LRN (Rec: 10/21/20 15:15 LRN [id number]) Physical Therapy Assessment Goals Three Impairment Pain interferring with sleeping at night (wakes 4x/ night to void) Short Term Goal (STG) Decrease times voiding at nighttime. STG Duration 11/18/20 Lead Pressman Goal (LTG) Improve ability to more easily fall back to sleep at night using relaxation techniques. LTG Duration 01/09/21 Two Impairment Pelvic pain (constant, rated 4 /10). Short Term Goal (STG) Decrease PF pain in the morning 50%. STG Duration 11/18/20 Assisted Goal (LTG) Elimination PF pain. LTG Duration 01/09/21 One Impairment Pt lacks appropriate self care HEP Short Term Goal (STG) Pt will be independent in PF stretches. (10/21/20: Pt started on PF stretching with dilator) STG Duration 10/28/20 (10/21/20: Progressed ) Assisted Goal (LTG) Pt will be independent in a self care HEP of hip stretches and core/hip stabilization. LTG Duration 01/09/21 Progress Towards Goals Progress Comments Progressed self care and PF stretching with dilator Assessment Summary Assessment Per PF exam, pt demonstrates pain with PF contraction only with digit in vagina. She is tight and tender at 2-4 of PF Clock with palpation of superficial and deep PF ms. Pt had abdominal pain with PF pain on contraction. There was no difference when pressure direction was changed (finger angle) when performing a PF contraction. Pt appears to have myofascial connections that may be causing onset of abdominal pain with PF pain, further assessment is needed. Physical Therapy Plan Frequency and Duration Frequency of Treatment 1x/Week Plan of Care Start Date 10/11/20 Plan of Care End Date 01/09/21 Next Visit Focus/Plan Next Note Type Treatment Note Next Visit Plan Review new Bladder Diary for changes in pattern (less frequency/urgency) if pt able to reduce bladder irritants and drink more water. Review and assess response to dilator stretching of PF. Add PF external self stretching ( Happy Baby pose, etc). Educate and issue HEP of hip mobility ex's (AD's and rotators), stabilization exercises (core and pelvis). Soft tissue mobilization, therapeutic activity, therapeutic exercise, downtraining of ANS, and pt education in PF self care. PF ms awareness for relaxation ( and possibly contraction) using biofeedback.
--- NOTE | 2020-10-28 17:44 | PT.OTN ---
Current Diagnoses Stiffness of right hip, not elsewhere classified (10/28/20) Stiffness of left hip, not elsewhere classified (10/28/20) Other specified disorders of muscle (10/28/20) Lower abdominal pain, unspecified (10/28/20) Abnormal posture (10/28/20) Physical Therapy Treatment Note PT-OP-A Visit Information Start: 10/07/20 18:56 Freq: Status: Active Protocol: Document 10/28/20 09:01 LRN (Rec: 10/28/20 09:53 LRN [id number]) Out-Patient Physical Therapy Visit Information Visit Information Visit Type Treatment Note Visit Start Time 09:01 Visit Stop Time 09:52 Total Visit Minutes 51 Visit Number 3 Evaluation Information Evaluation Date 10/11/20 Precautions Precautions Back pain from possibly DDD - since 15 yrs old, Fibromylagia - 2016, Rheumatoid Arthritis - 18 yrs old. PT-OP-B Current Condition Start: 10/07/20 18:56 Freq: Status: Active Protocol: Document 10/11/20 14:19 LRN (Rec: 10/11/20 15:11 LRN [id number]) Current Condition History of Current Condition Onset Date Aug 2019 Current Complaints PF pain, constant dull ache that increases randomly. History of Current Condition In Aug, periods were getting worse (2x/month) and that in the area of her ovaries she was having more pain. Has always had pain with periods, but now was having pain all the time. Pt is not able to recall any incident related to her pain onset. Has been eating a lot of soy and wonders if the increase in estrogen is related. Pt states she tries to stay very active, which helps her to ignore the pain. States the pain is effecting her sleep. When lying down she feels the pain the most. The urgency to urinate, after she voids at night she has pain not only in the PF but in the lower abdomen. Has had urgency her whole life. Has not had PF rehabilition (PT was for fibromyalgia and chronic pain) . Prior Treatments and Tests She reports having had a cortisone injection inside her vagina that she states changed nothing. She has also had steroids injected into the bladder and immediately developed urgency. Developmental History Developmental History Pt reports having pelvic floor pain that started before surgery (09/06/20) to remove cyst from ovaries and to check for endometriosis. She had the cyst removed and was found not to have endometriosis. Pt lives in [place], moved to [place] at end of 2019 from [place]. Had been in [place] for 4 yrs, and has had severe anxiety and depression, and felt her body felt worse than it had ever been and was eventually diagnosed with fibromalgia. She has a history of being stung by a Sting Ray that got infected and was being treated for it. She has tried a change in diet and exercise. Doesn't think she was feeling stressed therefore she doesn' t feel her problem is mental related. Treatment Goals Patient/Caregiver Goals Elimination of PF pain. Improve ability to sleep at night. Learn what is causing her pain . Prior Functional Status Baseline Function- ADL's Independent Baseline Function- Mobility Independent Baseline Function- Work/School . Baseline Function- Other Would wake up 4x/night due to urgency, without PF pain. Current Functional Impairments (Reported) Functional Limitations- ADL's Sleeping: wakes 4x/night to use bathroom. Has with it urgency and PF pain. Functional Limitations- Recreation/ Hiking and walking and Hobbies aerobics (1hr of each), yoga at night. Personal Factors Other Personal Factors That May Effect Spouse is in the and Therapy/Recovery deployed. Expected back in January and then will be stationed in [place]. Hx of Rheumatoid Arthritis, back pain, Fibromyalgia, & urinary urgency. PT-OP-C Subjective Start: 10/07/20 18:56 Freq: Status: Active Protocol: Document 10/28/20 09:01 LRN (Rec: 10/28/20 09:53 LRN [id number]) OP-PT Subjective Patient Comments Patient Comments States she should be assessed for Perkins syndrome. Her pain is worse. States her grandpa has bldadder cancer and her mother believes she has similar symtoms. Pt might now be staying through February if she isnot able to find a quiet place in [place] to move to . PT-OP-I Pelvic Floor Start: 10/07/20 18:56 Freq: Status: Active Protocol: Document 10/21/20 14:23 LRN (Rec: 10/21/20 17:54 LRN [id number]) Pelvic Floor Assessment Pelvic Clock Pelvic Clock Other Tender at 2-4 of PF Clock Perineal Descent Resting Absent Bearing Absent Contraction Ability Manual Muscle Testing Left 3 Manual Muscle Testing Right 3 Manual Muscle Testing Anterior 3 Manual Muscle Testing Posterior 3 Comments Pelvic Floor Comments Pt not able to tolerate 10 Quick Contractions with assessment using digit in vaginal canal. Pt was able to maintain a PF contraction for 10 secs with mild decrease in strength after 4 secs. PT-OP-J Posture/Palpation/Skin Start: 10/07/20 18:56 Freq: Status: Active Protocol: Document 10/11/20 14:19 LRN (Rec: 10/11/20 15:11 LRN [id number]) Posture Evaluation Position Standing T-Spine Posture Flattened L-Spine Posture Increased Lordosis Shoulder Posture (L) Elevated Comments Posture Comments R PSIS higher Mild scoliosis of spine: [place] on R upper T/S & L lower T/S. PT-OP-K Range of Motion Start: 10/07/20 18:56 Freq: Status: Active Protocol: Document 10/11/20 14:19 LRN (Rec: 10/11/20 15:11 LRN [id number]) Lumbar Spine Range of Motion Lumbar Spine Active Percentage Flexion 100 Extension 100 Rotation Left 75 Rotation Right 100 Lateral Flexion Left 100 Lateral Flexion Right 90 Hip Goniometric Range of Motion Hip Right Passive Testing Position Supine Straight Leg Raise 90 Abduction 20 Internal Rotation 34 External Rotation 65 Left Passive Testing Position Supine Straight Leg Raise 90 Abduction 30 Internal Rotation 35 External Rotation 65 PT-OP-M Strength Start: 10/07/20 18:56 Freq: Status: Active Protocol: Document 10/11/20 14:19 LRN (Rec: 10/11/20 15:11 LRN [id number]) Trunk Strength Trunk Manual Muscle Testing Testing Position Supine Core Stabilization Loss of core stability (trunk rotated towards testing side) with MMT of hip flexion bilaterally Hip Strength Hip Manual Muscle Testing Right Comments Generally 5/5 Left Comments Generally 5/5 PT-OP-Q Treatments Start: 10/07/20 18:56 Freq: Status: Active Protocol: Document 10/28/20 09:01 LRN (Rec: 10/28/20 09:53 LRN [id number]) Therapeutic Exercises Supine Exercises Piriformis stretch Supine Exercise Name Piriformis stretch Side bilateral Reps/Minutes 60+ hold bilaterally x 2 Lateral Hip Stretch Supine Exercise Name Lateral Hip Stretch Side bilateral Reps/Minutes 60+ hold x 2 Fig 4 stretch Supine Exercise Name Fig 4 stretch, f/b active stretch Side bilateral Reps/Minutes 60+ hold f/b active stretch Happy Baby Pose Supine Exercise Name Happy Baby Pose Reps/Minutes 3' Other Exercises Child's Pose stretch Other Exercise Name Child's Pose Reps/Minutes 5' Comments Extra time taken to maximize PF stretch Manual Therapy Treatment Soft Tissue Mobilization Abdomen Body Location Urachus, Bladder, Rectus Mobilization Type Myofascial Release,Sustained Pressure,Other Intensity/Depth Superficial Body Position Supine Hip Body Location Geo Adductors Mobilization Type Other Body Position Supine Comments Myokinesthetic stretching Self-Care/Home Management Treatment Education Other Education Discussed Bladder diary and possible areas of (ex- decr caffiene/bladder irritants, use of calming, deep breathing ) Activities Self-Care/Home Management Activities Issued & reviewed HEP: Hip Stretches: Fig 4, Lateral Hip , Piriformis. I/S pt in Child's Pose & Happy Baby Pose stretch. PT-OP-T Assessment and Plan Start: 10/07/20 18:56 Freq: Status: Active Protocol: Document 10/28/20 09:01 LRN (Rec: 10/28/20 09:53 LRN [id number]) Physical Therapy Assessment Goals Three Impairment Pain interferring with sleeping at night (wakes 4x/ night to void) Short Term Goal (STG) Decrease times voiding at nighttime. STG Duration 11/18/20 [employer] Roughneck Goal (LTG) Improve ability to more easily fall back to sleep at night using relaxation techniques. LTG Duration 01/09/21 Two Impairment Pelvic pain (constant, rated 4 /10). Short Term Goal (STG) Decrease PF pain in the morning 50%. STG Duration 11/18/20 [employer] Roughneck Goal (LTG) Elimination PF pain. LTG Duration 01/09/21 One Impairment Pt lacks appropriate self care HEP Short Term Goal (STG) Pt will be independent in PF stretches. (10/21/20: Pt started on PF stretching with dilator) STG Duration 10/28/20 (10/21/20: Progressed ) Assisted Goal (LTG) Pt will be independent in a self care HEP of hip stretches and core/hip stabilization. LTG Duration 01/09/21 Progress Towards Goals Progress Comments Progressed HEP. Assessment Summary Assessment Per bladder diary review pt showed improved voiding frequency as she decreased her caffeine intake, still has a pattern of urinary leakage from drinking coffee, wine and water. She did indicate that she had some days of type 1, 2 stools; therefore constipation can be a problem. Pt needs to use deep breathing and downtraining techniques. She appears to have had in the past psychological visits that were very helpful to her learning to deal with stress. She is just having more difficulty dealing with her abdominal and pelvic pain. Use of dilator on superficial PF ms appear to have helped with reports of a little less pain. Pt able to get a better stretch of PF with Child's pose vs Happy Baby Pose stretch. Physical Therapy Plan Frequency and Duration Frequency of Treatment 1x/Week Plan of Care Start Date 10/11/20 Plan of Care End Date 01/09/21 Next Visit Focus/Plan Next Note Type Treatment Note Next Visit Plan Monitor pt's BM history and anti-inflammatory diet and response to dilator stretching of PF. Assess response to HEP issused of hip ER, Lateral hip & Piriformis stretch. Add hip AD stretch and general walking to HEP Soft tissue mobilization, therapeutic activity, stretch ex of core, downtraining of ANS, and pt education in PF self care. PF ms awareness for relaxation ( and possibly contraction) using biofeedback.
--- NOTE | 2020-11-15 12:17 | PT.OTN ---
Current Diagnoses Stiffness of right hip, not elsewhere classified (11/15/20) Stiffness of left hip, not elsewhere classified (11/15/20) Other specified disorders of muscle (11/15/20) Lower abdominal pain, unspecified (11/15/20) Abnormal posture (11/15/20) Physical Therapy Treatment Note PT-OP-A Visit Information Start: 10/07/20 18:56 Freq: Status: Active Protocol: Document 11/15/20 10:38 LRN (Rec: 11/15/20 12:15 LRN [id number]) Out-Patient Physical Therapy Visit Information Visit Information Visit Type Treatment Note Visit Start Time 10:38 Visit Stop Time 11:27 Total Visit Minutes 49 Visit Number 4 Evaluation Information Evaluation Date 10/11/20 Precautions Precautions Back pain from possibly DDD - since 15 yrs old, Fibromylagia - 2016, Rheumatoid Arthritis - 18 yrs old. PT-OP-B Current Condition Start: 10/07/20 18:56 Freq: Status: Active Protocol: Document 10/11/20 14:19 LRN (Rec: 10/11/20 15:11 LRN [id number]) Current Condition History of Current Condition Onset Date Aug 2019 Current Complaints PF pain, constant dull ache that increases randomly. History of Current Condition In Aug, periods were getting worse (2x/month) and that in the area of her ovaries she was having more pain. Has always had pain with periods, but now was having pain all the time. Pt is not able to recall any incident related to her pain onset. Has been eating a lot of soy and wonders if the increase in estrogen is related. Pt states she tries to stay very active, which helps her to ignore the pain. States the pain is effecting her sleep. When lying down she feels the pain the most. The urgency to urinate, after she voids at night she has pain not only in the PF but in the lower abdomen. Has had urgency her whole life. Has not had PF rehabilition (PT was for fibromyalgia and chronic pain) . Prior Treatments and Tests She reports having had a cortisone injection inside her vagina that she states changed nothing. She has also had steroids injected into the bladder and immediately developed urgency. Developmental History Developmental History Pt reports having pelvic floor pain that started before surgery (09/06/20) to remove cyst from ovaries and to check for endometriosis. She had the cyst removed and was found not to have endometriosis. Pt lives in [place], moved to [place] at end of 2019 from [place]. Had been in [place] for 4 yrs, and has had severe anxiety and depression, and felt her body felt worse than it had ever been and was eventually diagnosed with fibromalgia. She has a history of being stung by a Sting Ray that got infected and was being treated for it. She has tried a change in diet and exercise. Doesn't think she was feeling stressed therefore she doesn' t feel her problem is mental related. Treatment Goals Patient/Caregiver Goals Elimination of PF pain. Improve ability to sleep at night. Learn what is causing her pain . Prior Functional Status Baseline Function- ADL's Independent Baseline Function- Mobility Independent Baseline Function- Work/School . Baseline Function- Other Would wake up 4x/night due to urgency, without PF pain. Current Functional Impairments (Reported) Functional Limitations- ADL's Sleeping: wakes 4x/night to use bathroom. Has with it urgency and PF pain. Functional Limitations- Recreation/ Hiking and walking and Hobbies aerobics (1hr of each), yoga at night. Personal Factors Other Personal Factors That May Effect Spouse is in the and Therapy/Recovery deployed. Expected back in January and then will be stationed in [place]. Hx of Rheumatoid Arthritis, back pain, Fibromyalgia, & urinary urgency. PT-OP-C Subjective Start: 10/07/20 18:56 Freq: Status: Active Protocol: Document 11/15/20 10:38 LRN (Rec: 11/15/20 12:15 LRN [id number]) OP-PT Subjective Patient Comments Patient Comments Doing bad. Vacation was good and was keeping so busy she didn't notice the pain. Now home, pain has doubled and having trouble sleeping at night and dealing with pain during the day. Less relief with dilator stretching. OP-PT Pain Assessment Pain Assessment Grid Paper Pain Assessment Grid Completed No Location PF Pain Location Details Variable locations: PF, inside vaginal area, anus, lower & upper abdomen, Intensity 4 Scale Used Numeric (0 - 10) Comments Pain Comments Increased pain since return home from vacation: Pain during the day 5/10 (currently 4/10), and nighttime pain 8/ 10. Constrant pain. PT-OP-I Pelvic Floor Start: 10/07/20 18:56 Freq: Status: Active Protocol: Document 10/21/20 14:23 LRN (Rec: 10/21/20 17:54 LRN [id number]) Pelvic Floor Assessment Pelvic Clock Pelvic Clock Other Tender at 2-4 of PF Clock Perineal Descent Resting Absent Bearing Absent Contraction Ability Manual Muscle Testing Left 3 Manual Muscle Testing Right 3 Manual Muscle Testing Anterior 3 Manual Muscle Testing Posterior 3 Comments Pelvic Floor Comments Pt not able to tolerate 10 Quick Contractions with assessment using digit in vaginal canal. Pt was able to maintain a PF contraction for 10 secs with mild decrease in strength after 4 secs. PT-OP-J Posture/Palpation/Skin Start: 10/07/20 18:56 Freq: Status: Active Protocol: Document 10/11/20 14:19 LRN (Rec: 10/11/20 15:11 LRN [id number]) Posture Evaluation Position Standing T-Spine Posture Flattened L-Spine Posture Increased Lordosis Shoulder Posture (L) Elevated Comments Posture Comments R PSIS higher Mild scoliosis of spine: [place] on R upper T/S & L lower T/S. PT-OP-K Range of Motion Start: 10/07/20 18:56 Freq: Status: Active Protocol: Document 10/11/20 14:19 LRN (Rec: 10/11/20 15:11 LRN [id number]) Lumbar Spine Range of Motion Lumbar Spine Active Percentage Flexion 100 Extension 100 Rotation Left 75 Rotation Right 100 Lateral Flexion Left 100 Lateral Flexion Right 90 Hip Goniometric Range of Motion Hip Right Passive Testing Position Supine Straight Leg Raise 90 Abduction 20 Internal Rotation 34 External Rotation 65 Left Passive Testing Position Supine Straight Leg Raise 90 Abduction 30 Internal Rotation 35 External Rotation 65 PT-OP-M Strength Start: 10/07/20 18:56 Freq: Status: Active Protocol: Document 10/11/20 14:19 LRN (Rec: 10/11/20 15:11 LRN [id number]) Trunk Strength Trunk Manual Muscle Testing Testing Position Supine Core Stabilization Loss of core stability (trunk rotated towards testing side) with MMT of hip flexion bilaterally Hip Strength Hip Manual Muscle Testing Right Comments Generally 5/5 Left Comments Generally 5/5 PT-OP-Q Treatments Start: 10/07/20 18:56 Freq: Status: Active Protocol: Document 11/15/20 10:38 LRN (Rec: 11/15/20 12:15 LRN [id number]) Therapeutic Exercises Supine Exercises Deep Breathing Supine Exercise Name Semi-reclined with legs on bolster for deep breathing. Reps/Minutes 3' Comments Constant v cuing for relaxation with deep breathing Other Exercises Child's Pose stretch Other Exercise Name Child's Pose Reps/Minutes 3' Comments Correcting positioning with legs mostly together, no hip IR Manual Therapy Treatment Soft Tissue Mobilization Low back Body Location L/S extensors, primarily on R. Mobilization Type Strain/Counterstrain,Strumming ,Sustained Pressure Intensity/Depth Moderate Body Position Prone Comments S/CS with pelvic rotation towards side of tenderness (R side) Abdomen Body Location Abdomen/Rectus/rotators and Bladder Mobilization Type Myofascial Release,Sustained Pressure,Other Intensity/Depth Superficial Comments Pt in semi-reclined position w /boster for LE's Hip Body Location Bilateral Iliopsoas primarily, Hip ADD Mobilization Type Trigger Point Release Body Position Supine Self-Care/Home Management Treatment Education Other Education Discussed use of small dilator and daily walking. discussed trying to get into tub for relaxation. Activities Self-Care/Home Management Activities Issued with quick review of hip stretches (inner thigh, hamstrings, glut max-happy baby pose, buttocks-piriformis /ER, outer hip-IT Band, Perineurm-squat). PT-OP-T Assessment and Plan Start: 10/07/20 18:56 Freq: Status: Active Protocol: Document 11/15/20 10:38 LRN (Rec: 11/15/20 12:15 LRN [id number]) Physical Therapy Assessment Goals Three Impairment Pain interferring with sleeping at night (wakes 4x/ night to void) Short Term Goal (STG) Decrease times voiding at nighttime. STG Duration 11/18/20 [employer] Machine Operator Goal (LTG) Improve ability to more easily fall back to sleep at night using relaxation techniques. LTG Duration 01/09/21 Two Impairment Pelvic pain (constant, rated 4 /10). Short Term Goal (STG) Decrease PF pain in the morning 50%. STG Duration 11/18/20 Correction Goal (LTG) Elimination PF pain. LTG Duration 01/09/21 One Impairment Pt lacks appropriate self care HEP Short Term Goal (STG) Pt will be independent in PF stretches. (10/21/20: Pt started on PF stretching with dilator) STG Duration 10/28/20 (10/21/20: Progressed ) Cook[employer] Machine Operator Goal (LTG) Pt will be independent in a self care HEP of hip stretches and core/hip stabilization. LTG Duration 01/09/21 Progress Towards Goals Progress Comments Pt returns from vacation with pain exacerbated. Pt verbally reports a decrease in PF pain today from 4/10 ( to start) to 3/10 (to end). Assessment Summary Assessment Since returning from her vacation pt's symptoms have exacerbated, possibly due to derease in activity level, decrease use of hot tub at nighttime and decrease in quieting environment and decreased use of PF stretching with small dilator. Pt did find some relief of PF pain after manual treatments. Physical Therapy Plan Frequency and Duration Frequency of Treatment 1x/Week Plan of Care Start Date 10/11/20 Plan of Care End Date 01/09/21 Next Visit Focus/Plan Next Note Type Treatment Note Next Visit Plan Assess pt's response to I/S self care program (deep breathing, relaxation, heating pad to PF, dilator & hip stretching, continued fluid increase, daily walking). Review hip stretches issued. Monitor pt's BM history and anti-inflammatory diet. Assess response to HEP issused of hip ER, Lateral hip & Piriformis stretch. Soft tissue mobilization (abdom - try S/CS, LB, Iliopsoas, hip AD/ER/TFL).Add therapeutic activity training, stretch ex of core, downtraining of ANS, and pt education in PF self care. Biofeedback for PF ms awareness relaxation.
--- NOTE | 2020-11-29 17:46 | PT.OTN ---
Current Diagnoses Stiffness of right hip, not elsewhere classified (11/29/20) Stiffness of left hip, not elsewhere classified (11/29/20) Other specified disorders of muscle (11/29/20) Lower abdominal pain, unspecified (11/29/20) Abnormal posture (11/29/20) Physical Therapy Treatment Note PT-OP-A Visit Information Start: 10/07/20 18:56 Freq: Status: Active Protocol: Document 11/29/20 08:17 LRN (Rec: 11/29/20 08:20 LRN [id number]) Out-Patient Physical Therapy Visit Information Visit Information Visit Type Treatment Note Visit Start Time 08:17 Visit Stop Time 09:02 Total Visit Minutes 47 Visit Number 5 Evaluation Information Evaluation Date 10/11/20 Precautions Precautions Back pain from possibly DDD - since 15 yrs old, Fibromylagia - 2016, Rheumatoid Arthritis - 18 yrs old. PT-OP-B Current Condition Start: 10/07/20 18:56 Freq: Status: Active Protocol: Document 10/11/20 14:19 LRN (Rec: 10/11/20 15:11 LRN [id number]) Current Condition History of Current Condition Onset Date Aug 2019 Current Complaints PF pain, constant dull ache that increases randomly. History of Current Condition In Aug, periods were getting worse (2x/month) and that in the area of her ovaries she was having more pain. Has always had pain with periods, but now was having pain all the time. Pt is not able to recall any incident related to her pain onset. Has been eating a lot of soy and wonders if the increase in estrogen is related. Pt states she tries to stay very active, which helps her to ignore the pain. States the pain is effecting her sleep. When lying down she feels the pain the most. The urgency to urinate, after she voids at night she has pain not only in the PF but in the lower abdomen. Has had urgency her whole life. Has not had PF rehabilition (PT was for fibromyalgia and chronic pain) . Prior Treatments and Tests She reports having had a cortisone injection inside her vagina that she states changed nothing. She has also had steroids injected into the bladder and immediately developed urgency. Developmental History Developmental History Pt reports having pelvic floor pain that started before surgery (09/06/20) to remove cyst from ovaries and to check for endometriosis. She had the cyst removed and was found not to have endometriosis. Pt lives in [place], moved to [place] at end of 2019 from [place]. Had been in [place] for 4 yrs, and has had severe anxiety and depression, and felt her body felt worse than it had ever been and was eventually diagnosed with fibromalgia. She has a history of being stung by a Sting Ray that got infected and was being treated for it. She has tried a change in diet and exercise. Doesn't think she was feeling stressed therefore she doesn' t feel her problem is mental related. Treatment Goals Patient/Caregiver Goals Elimination of PF pain. Improve ability to sleep at night. Learn what is causing her pain . Prior Functional Status Baseline Function- ADL's Independent Baseline Function- Mobility Independent Baseline Function- Work/School . Baseline Function- Other Would wake up 4x/night due to urgency, without PF pain. Current Functional Impairments (Reported) Functional Limitations- ADL's Sleeping: wakes 4x/night to use bathroom. Has with it urgency and PF pain. Functional Limitations- Recreation/ Hiking and walking and Hobbies aerobics (1hr of each), yoga at night. Personal Factors Other Personal Factors That May Effect Spouse is in the and Therapy/Recovery deployed. Expected back in January and then will be stationed in [place]. Hx of Rheumatoid Arthritis, back pain, Fibromyalgia, & urinary urgency. PT-OP-C Subjective Start: 10/07/20 18:56 Freq: Status: Active Protocol: Document 11/29/20 08:17 LRN (Rec: 11/29/20 08:20 LRN [id number]) OP-PT Subjective Patient Comments Patient Comments Gave up coffee, haven't found a substitute because she likes green tea. Hasn't done well with water because of the driving. While there was paranoid about water so drank less. Pt PF pain reported as 3-4/10. States her spouse is returning tomorrow and she is hoping she won't be painful with sex from transgendered spouse. PT-OP-I Pelvic Floor Start: 10/07/20 18:56 Freq: Status: Active Protocol: Document 10/21/20 14:23 LRN (Rec: 10/21/20 17:54 LRN [id number]) Pelvic Floor Assessment Pelvic Clock Pelvic Clock Other Tender at 2-4 of PF Clock Perineal Descent Resting Absent Bearing Absent Contraction Ability Manual Muscle Testing Left 3 Manual Muscle Testing Right 3 Manual Muscle Testing Anterior 3 Manual Muscle Testing Posterior 3 Comments Pelvic Floor Comments Pt not able to tolerate 10 Quick Contractions with assessment using digit in vaginal canal. Pt was able to maintain a PF contraction for 10 secs with mild decrease in strength after 4 secs. PT-OP-J Posture/Palpation/Skin Start: 10/07/20 18:56 Freq: Status: Active Protocol: Document 10/11/20 14:19 LRN (Rec: 10/11/20 15:11 LRN [id number]) Posture Evaluation Position Standing T-Spine Posture Flattened L-Spine Posture Increased Lordosis Shoulder Posture (L) Elevated Comments Posture Comments R PSIS higher Mild scoliosis of spine: [place] on R upper T/S & L lower T/S. PT-OP-K Range of Motion Start: 10/07/20 18:56 Freq: Status: Active Protocol: Document 10/11/20 14:19 LRN (Rec: 10/11/20 15:11 LRN [id number]) Lumbar Spine Range of Motion Lumbar Spine Active Percentage Flexion 100 Extension 100 Rotation Left 75 Rotation Right 100 Lateral Flexion Left 100 Lateral Flexion Right 90 Hip Goniometric Range of Motion Hip Right Passive Testing Position Supine Straight Leg Raise 90 Abduction 20 Internal Rotation 34 External Rotation 65 Left Passive Testing Position Supine Straight Leg Raise 90 Abduction 30 Internal Rotation 35 External Rotation 65 PT-OP-M Strength Start: 10/07/20 18:56 Freq: Status: Active Protocol: Document 10/11/20 14:19 LRN (Rec: 10/11/20 15:11 LRN [id number]) Trunk Strength Trunk Manual Muscle Testing Testing Position Supine Core Stabilization Loss of core stability (trunk rotated towards testing side) with MMT of hip flexion bilaterally Hip Strength Hip Manual Muscle Testing Right Comments Generally 5/5 Left Comments Generally 5/5 PT-OP-Q Treatments Start: 10/07/20 18:56 Freq: Status: Active Protocol: Document 11/29/20 08:17 LRN (Rec: 11/29/20 09:05 LRN [id number]) Therapeutic Exercises Supine Exercises Piriformis stretch Supine Exercise Name Piriformis stretch Side bilateral Reps/Minutes 60+ hold bilaterally x 2 Lateral Hip Stretch Supine Exercise Name Lateral Hip Stretch Side bilateral Reps/Minutes 60+ hold x 2 Fig 4 stretch Supine Exercise Name Fig 4 stretch, f/b active stretch Side bilateral Reps/Minutes 60+ hold f/b active stretch Happy Baby Pose Supine Exercise Name Happy Baby Pose Reps/Minutes 3' Prone Exercises JANIYA abdominal stretch Prone Exercise Name JANIYA Abdominal stretch Reps/Minutes 10' Comments 5' 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 Discussed possible reasons for increase in pain not that she has returned (yesterday). Discussed fluids intake ( reduced) and pt not noticing much affect. Discussed and reviewed different techniques she could use to try to decrease her PF pain (heat, deep breathing, mindfulness, self Trp treatment, decr audible stimulus', consistent PF stretching with dilator, and hip/PF stretches. PT-OP-T Assessment and Plan Start: 10/07/20 18:56 Freq: Status: Active Protocol: Document 11/29/20 08:17 LRN (Rec: 11/29/20 08:20 LRN [id number]) Physical Therapy Assessment Goals Three Impairment Pain interferring with sleeping at night (wakes 4x/ night to void) Short Term Goal (STG) Decrease times voiding at nighttime. STG Duration 11/18/20 Correction Goal (LTG) Improve ability to more easily fall back to sleep at night using relaxation techniques. LTG Duration 01/09/21 Two Impairment Pelvic pain (constant, rated 4 /10). Short Term Goal (STG) Decrease PF pain in the morning 50%. STG Duration 11/18/20 Last Trimmer Goal (LTG) Elimination PF pain. LTG Duration 01/09/21 One Impairment Pt lacks appropriate self care HEP Short Term Goal (STG) Pt will be independent in PF stretches. (10/21/20: Pt started on PF stretching with dilator) STG Duration 10/28/20 (10/21/20: Progressed ) Last Trimmer Goal (LTG) Pt will be independent in a self care HEP of hip stretches and core/hip stabilization. LTG Duration 01/09/21 Assessment Summary Assessment Pt was not able to do ex's or PF stretching while visiting family. She experienced decrease in PF pain from possibly being very busy ( including physical work in garden), fatigued at days end and quietness of location that helped her have good sleep. Pt R Iliopsoas was tighter and more tender than the L side. Less restriction noted on L side. Physical Therapy Plan Frequency and Duration Frequency of Treatment 1x/Week Plan of Care Start Date 10/11/20 Plan of Care End Date 01/09/21 Next Visit Focus/Plan Next Note Type Treatment Note Next Visit Plan Review hip stretches issued. Pt education in PF self care. Monitor pt's BM history and anti-inflammatory diet. Assess response to HEP issued of hip ER, Lateral hip & Piriformis stretch. Soft tissue mobilization (abdom - try S/CS, LB, Iliopsoas, hip AD/ER/TFL). Add therapeutic activity training, stretch ex of core, downtraining of ANS. Biofeedback for PF ms awareness relaxation. Occasional review of deep breathing, relaxation, heating pad to PF, dilator & hip stretching, continued fluid increase, daily walking.
--- NOTE | 2020-12-16 16:56 | PT.OTN ---
Current Diagnoses Stiffness of right hip, not elsewhere classified (12/16/20) Stiffness of left hip, not elsewhere classified (12/16/20) Other specified disorders of muscle (12/16/20) Lower abdominal pain, unspecified (12/16/20) Abnormal posture (12/16/20) Physical Therapy Treatment Note PT-OP-A Visit Information Start: 10/07/20 18:56 Freq: Status: Active Protocol: Document 12/16/20 08:18 LRN (Rec: 12/16/20 09:06 LRN [id number]) Out-Patient Physical Therapy Visit Information Visit Information Visit Type Treatment Note Visit Start Time 08:18 Visit Stop Time 09:00 Total Visit Minutes 42 Visit Number 6 Evaluation Information Evaluation Date 10/11/20 Precautions Precautions Back pain from possibly DDD - since 15 yrs old, Fibromylagia - 2016, Rheumatoid Arthritis - 18 yrs old. PT-OP-B Current Condition Start: 10/07/20 18:56 Freq: Status: Active Protocol: Document 10/11/20 14:19 LRN (Rec: 10/11/20 15:11 LRN [id number]) Current Condition History of Current Condition Onset Date Aug 2019 Current Complaints PF pain, constant dull ache that increases randomly. History of Current Condition In Aug, periods were getting worse (2x/month) and that in the area of her ovaries she was having more pain. Has always had pain with periods, but now was having pain all the time. Pt is not able to recall any incident related to her pain onset. Has been eating a lot of soy and wonders if the increase in estrogen is related. Pt states she tries to stay very active, which helps her to ignore the pain. States the pain is effecting her sleep. When lying down she feels the pain the most. The urgency to urinate, after she voids at night she has pain not only in the PF but in the lower abdomen. Has had urgency her whole life. Has not had PF rehabilition (PT was for fibromyalgia and chronic pain) . Prior Treatments and Tests She reports having had a cortisone injection inside her vagina that she states changed nothing. She has also had steroids injected into the bladder and immediately developed urgency. Developmental History Developmental History Pt reports having pelvic floor pain that started before surgery (09/06/20) to remove cyst from ovaries and to check for endometriosis. She had the cyst removed and was found not to have endometriosis. Pt lives in [place], moved to [place] at end of 2019 from [place]. Had been in [place] for 4 yrs, and has had severe anxiety and depression, and felt her body felt worse than it had ever been and was eventually diagnosed with fibromalgia. She has a history of being stung by a Sting Ray that got infected and was being treated for it. She has tried a change in diet and exercise. Doesn't think she was feeling stressed therefore she doesn' t feel her problem is mental related. Treatment Goals Patient/Caregiver Goals Elimination of PF pain. Improve ability to sleep at night. Learn what is causing her pain . Prior Functional Status Baseline Function- ADL's Independent Baseline Function- Mobility Independent Baseline Function- Work/School . Baseline Function- Other Would wake up 4x/night due to urgency, without PF pain. Current Functional Impairments (Reported) Functional Limitations- ADL's Sleeping: wakes 4x/night to use bathroom. Has with it urgency and PF pain. Functional Limitations- Recreation/ Hiking and walking and Hobbies aerobics (1hr of each), yoga at night. Personal Factors Other Personal Factors That May Effect Spouse is in the and Therapy/Recovery deployed. Expected back in January and then will be stationed in [place]. Hx of Rheumatoid Arthritis, back pain, Fibromyalgia, & urinary urgency. PT-OP-C Subjective Start: 10/07/20 18:56 Freq: Status: Active Protocol: Document 12/16/20 08:18 LRN (Rec: 12/16/20 09:06 LRN [id number]) OP-PT Subjective Patient Comments Patient Comments Pain is the same. Having another period this month. During period doesn't feel the bladder cramping, just other cramping. Bowels are fine, regular. Moving to [facility], December ~. States has been stretching with dilator. PT-OP-I Pelvic Floor Start: 10/07/20 18:56 Freq: Status: Active Protocol: Document 10/21/20 14:23 LRN (Rec: 10/21/20 17:54 LRN [id number]) Pelvic Floor Assessment Pelvic Clock Pelvic Clock Other Tender at 2-4 of PF Clock Perineal Descent Resting Absent Bearing Absent Contraction Ability Manual Muscle Testing Left 3 Manual Muscle Testing Right 3 Manual Muscle Testing Anterior 3 Manual Muscle Testing Posterior 3 Comments Pelvic Floor Comments Pt not able to tolerate 10 Quick Contractions with assessment using digit in vaginal canal. Pt was able to maintain a PF contraction for 10 secs with mild decrease in strength after 4 secs. PT-OP-J Posture/Palpation/Skin Start: 10/07/20 18:56 Freq: Status: Active Protocol: Document 10/11/20 14:19 LRN (Rec: 10/11/20 15:11 LRN [id number]) Posture Evaluation Position Standing T-Spine Posture Flattened L-Spine Posture Increased Lordosis Shoulder Posture (L) Elevated Comments Posture Comments R PSIS higher Mild scoliosis of spine: [place] on R upper T/S & L lower T/S. PT-OP-K Range of Motion Start: 10/07/20 18:56 Freq: Status: Active Protocol: Document 10/11/20 14:19 LRN (Rec: 10/11/20 15:11 LRN [id number]) Lumbar Spine Range of Motion Lumbar Spine Active Percentage Flexion 100 Extension 100 Rotation Left 75 Rotation Right 100 Lateral Flexion Left 100 Lateral Flexion Right 90 Hip Goniometric Range of Motion Hip Right Passive Testing Position Supine Straight Leg Raise 90 Abduction 20 Internal Rotation 34 External Rotation 65 Left Passive Testing Position Supine Straight Leg Raise 90 Abduction 30 Internal Rotation 35 External Rotation 65 PT-OP-M Strength Start: 10/07/20 18:56 Freq: Status: Active Protocol: Document 10/11/20 14:19 LRN (Rec: 10/11/20 15:11 LRN [id number]) Trunk Strength Trunk Manual Muscle Testing Testing Position Supine Core Stabilization Loss of core stability (trunk rotated towards testing side) with MMT of hip flexion bilaterally Hip Strength Hip Manual Muscle Testing Right Comments Generally 5/5 Left Comments Generally 5/5 PT-OP-Q Treatments Start: 10/07/20 18:56 Freq: Status: Active Protocol: Document 12/16/20 08:18 LRN (Rec: 12/16/20 09:06 LRN [id number]) Therapeutic Exercises Supine Exercises Iliopsoas stretch Reps/Minutes 3' Piriformis stretch Supine Exercise Name Piriformis stretch Side bilateral Reps/Minutes 60+ hold bilaterally x 2 Lateral Hip Stretch Supine Exercise Name Lateral Hip Stretch Side bilateral Reps/Minutes 60+ hold x 2 Fig 4 stretch Supine Exercise Name Fig 4 stretch, f/b active stretch Side bilateral Reps/Minutes 60+ hold f/b active stretch Happy Baby Pose Supine Exercise Name Happy Baby Pose Reps/Minutes 3' Sitting Exercises Long sit hip AD stretch Reps/Minutes 3' Long sit Hamstring stretch Reps/Minutes 3' Standing Exercises Hip flexor stretch Reps/Minutes 3' Self-Care/Home Management Treatment Education Other Education Educated pt in General Vulvar care & Genital hygiene for woman with handout issued. Activities Self-Care/Home Management Activities Issued & reviewed HEP: Iliopsoas stretch sup & standing. PT-OP-T Assessment and Plan Start: 10/07/20 18:56 Freq: Status: Active Protocol: Document 12/16/20 08:18 LRN (Rec: 12/16/20 09:06 LRN [id number]) Physical Therapy Assessment Goals Three Impairment Pain interferring with sleeping at night (wakes 4x/ night to void) Short Term Goal (STG) Decrease times voiding at nighttime. (12/16/20: Voiding 1-2x/night) STG Duration 11/18/20 (12/16/20: MET GOAL) Cell Installer Goal (LTG) Improve ability to more easily fall back to sleep at night using relaxation techniques. (12/16/20: falling asleep is not a problem unless having cramps. Mgmt of cramps is with massager) LTG Duration 01/09/21 (12/16/20: MET GOAL ) Two Impairment Pelvic pain (constant, rated 4 /10). Short Term Goal (STG) Decrease PF pain in the morning 50%. (12/16/20: Majority of time Pain 2-3/10 in AM) STG Duration 11/18/20 (12/16/20: MET GOAL) Usp Goal (LTG) Elimination PF pain. LTG Duration 01/09/21 One Impairment Pt lacks appropriate self care HEP Short Term Goal (STG) Pt will be independent in PF stretches. (10/21/20: Pt started on PF stretching with dilator) STG Duration 10/28/20 (12/16/20: MET GOAL) Usp Goal (LTG) Pt will be independent in a self care HEP of hip stretches and core/hip stabilization. (12/16/20: HEP issued: hip stretches) LTG Duration 01/09/21 (12/16/20: Progressed) Progress Towards Goals Progress Comments Progressed HEP of hip stretches and educated pt in self care of PF. STG & LTG #3 MET. Decreased in her nighttime voids from 4x /night to 1-2x/night. STG: #2 MET. She has had a decrease in PF pain 25-50% with pain rated 2-3/10 ( initially 4/10). STG #1 MET. Pt is knowledgeable of PF stretches and stretching with dilator. Assessment Summary Assessment Pt has overall improved in ability to fall asleep at night and has decreased in her nighttime voids. Her PF pain has decreased from 4/10 to 2- 3/10 in the mornings. She appears to have a good understanding of her hip stretches. Pt moving from the area; therefore all goals might not be met. Physical Therapy Plan Frequency and Duration Frequency of Treatment 1x/Week Plan of Care Start Date 10/11/20 Plan of Care End Date 01/09/21 Next Visit Focus/Plan Next Note Type Treatment Note Next Visit Plan Assess for DC (PUF & Goals). Complete HEP (LTG #1): core/ hip stabilization. Review recommended contuation of self care: deep breathing, relaxation (imagery for downtraining of ANS), heating pad to PF, dilator & hip stretching, continued fluid increase, & daily walking & imagery for. If time permits, soft tissue mobilization Iliopsoas, hip AD /TFL.
--- NOTE | 2020-12-22 16:53 | PT.OTN ---
Current Diagnoses Stiffness of right hip, not elsewhere classified (12/22/20) Stiffness of left hip, not elsewhere classified (12/22/20) Other specified disorders of muscle (12/22/20) Lower abdominal pain, unspecified (12/22/20) Abnormal posture (12/22/20) Physical Therapy Treatment Note PT-OP-A Visit Information Start: 10/07/20 18:56 Freq: Status: Active Protocol: Document 12/22/20 11:27 LRN (Rec: 12/22/20 12:30 LRN [id number]) Out-Patient Physical Therapy Visit Information Visit Information Visit Type Treatment Note Visit Start Time 11:27 Visit Stop Time 12:12 Total Visit Minutes 45 Visit Number 7 Evaluation Information Evaluation Date 10/11/20 Precautions Precautions Back pain from possibly DDD - since 15 yrs old, Fibromylagia - 2016, Rheumatoid Arthritis - 18 yrs old. PT-OP-B Current Condition Start: 10/07/20 18:56 Freq: Status: Active Protocol: Document 10/11/20 14:19 LRN (Rec: 10/11/20 15:11 LRN [id number]) Current Condition History of Current Condition Onset Date Aug 2019 Current Complaints PF pain, constant dull ache that increases randomly. History of Current Condition In Aug, periods were getting worse (2x/month) and that in the area of her ovaries she was having more pain. Has always had pain with periods, but now was having pain all the time. Pt is not able to recall any incident related to her pain onset. Has been eating a lot of soy and wonders if the increase in estrogen is related. Pt states she tries to stay very active, which helps her to ignore the pain. States the pain is effecting her sleep. When lying down she feels the pain the most. The urgency to urinate, after she voids at night she has pain not only in the PF but in the lower abdomen. Has had urgency her whole life. Has not had PF rehabilition (PT was for fibromyalgia and chronic pain) . Prior Treatments and Tests She reports having had a cortisone injection inside her vagina that she states changed nothing. She has also had steroids injected into the bladder and immediately developed urgency. Developmental History Developmental History Pt reports having pelvic floor pain that started before surgery (09/06/20) to remove cyst from ovaries and to check for endometriosis. She had the cyst removed and was found not to have endometriosis. Pt lives in [place], moved to [place] at end of 2019 from [place]. Had been in [place] for 4 yrs, and has had severe anxiety and depression, and felt her body felt worse than it had ever been and was eventually diagnosed with fibromalgia. She has a history of being stung by a Sting Ray that got infected and was being treated for it. She has tried a change in diet and exercise. Doesn't think she was feeling stressed therefore she doesn' t feel her problem is mental related. Treatment Goals Patient/Caregiver Goals Elimination of PF pain. Improve ability to sleep at night. Learn what is causing her pain . Prior Functional Status Baseline Function- ADL's Independent Baseline Function- Mobility Independent Baseline Function- Work/School . Baseline Function- Other Would wake up 4x/night due to urgency, without PF pain. Current Functional Impairments (Reported) Functional Limitations- ADL's Sleeping: wakes 4x/night to use bathroom. Has with it urgency and PF pain. Functional Limitations- Recreation/ Hiking and walking and Hobbies aerobics (1hr of each), yoga at night. Personal Factors Other Personal Factors That May Effect Spouse is in the and Therapy/Recovery deployed. Expected back in January and then will be stationed in [place]. Hx of Rheumatoid Arthritis, back pain, Fibromyalgia, & urinary urgency. PT-OP-C Subjective Start: 10/07/20 18:56 Freq: Status: Active Protocol: Document 12/22/20 11:27 LRN (Rec: 12/22/20 12:30 LRN [id number]) OP-PT Subjective Patient Comments Patient Comments Starting to get cramps again. Starting move tomorrow. Today is last day she can attend therapy. Patient Questionnaires Pelvic Pain and Urgency/Frequency Patient Symptom Scale Pelvic Pain Score 13 PT-OP-I Pelvic Floor Start: 10/07/20 18:56 Freq: Status: Active Protocol: Document 10/21/20 14:23 LRN (Rec: 10/21/20 17:54 LRN [id number]) Pelvic Floor Assessment Pelvic Clock Pelvic Clock Other Tender at 2-4 of PF Clock Perineal Descent Resting Absent Bearing Absent Contraction Ability Manual Muscle Testing Left 3 Manual Muscle Testing Right 3 Manual Muscle Testing Anterior 3 Manual Muscle Testing Posterior 3 Comments Pelvic Floor Comments Pt not able to tolerate 10 Quick Contractions with assessment using digit in vaginal canal. Pt was able to maintain a PF contraction for 10 secs with mild decrease in strength after 4 secs. PT-OP-J Posture/Palpation/Skin Start: 10/07/20 18:56 Freq: Status: Active Protocol: Document 10/11/20 14:19 LRN (Rec: 10/11/20 15:11 LRN [id number]) Posture Evaluation Position Standing T-Spine Posture Flattened L-Spine Posture Increased Lordosis Shoulder Posture (L) Elevated Comments Posture Comments R PSIS higher Mild scoliosis of spine: [place] on R upper T/S & L lower T/S. PT-OP-K Range of Motion Start: 10/07/20 18:56 Freq: Status: Active Protocol: Document 10/11/20 14:19 LRN (Rec: 10/11/20 15:11 LRN [id number]) Lumbar Spine Range of Motion Lumbar Spine Active Percentage Flexion 100 Extension 100 Rotation Left 75 Rotation Right 100 Lateral Flexion Left 100 Lateral Flexion Right 90 Hip Goniometric Range of Motion Hip Right Passive Testing Position Supine Straight Leg Raise 90 Abduction 20 Internal Rotation 34 External Rotation 65 Left Passive Testing Position Supine Straight Leg Raise 90 Abduction 30 Internal Rotation 35 External Rotation 65 PT-OP-M Strength Start: 10/07/20 18:56 Freq: Status: Active Protocol: Document 10/11/20 14:19 LRN (Rec: 10/11/20 15:11 LRN [id number]) Trunk Strength Trunk Manual Muscle Testing Testing Position Supine Core Stabilization Loss of core stability (trunk rotated towards testing side) with MMT of hip flexion bilaterally Hip Strength Hip Manual Muscle Testing Right Comments Generally 5/5 Left Comments Generally 5/5 PT-OP-Q Treatments Start: 10/07/20 18:56 Freq: Status: Active Protocol: Document 12/22/20 11:27 LRN (Rec: 12/22/20 12:30 LRN [id number]) Manual Therapy Treatment Soft Tissue Mobilization Abdomen Body Location Abdomen/Rectus/rotators and Bladder Mobilization Type Myofascial Release,Sustained Pressure Intensity/Depth Superficial Body Position Supine Hip Body Location Bilateral Iliopsoas primarily, Hip ADD Mobilization Type Strumming,Sustained Pressure, Trigger Point Release Body Position Supine Self-Care/Home Management Treatment Education Patient Education Home Exercise Program Other Education Reviewed with pt self care of sleep, rest, relaxation with mechanisms previously discussed, nutrition, voiding, etc. Activities Self-Care/Home Management Activities Issued & reviewed HEP: Abdominal stretch. PT-OP-T Assessment and Plan Start: 10/07/20 18:56 Freq: Status: Active Protocol: Document 12/22/20 11:27 LRN (Rec: 12/22/20 12:30 LRN [id number]) Physical Therapy Assessment Goals Three Impairment Pain interfering with sleeping at night (wakes 4x/night to void) Short Term Goal (STG) Decrease times voiding at nighttime. (12/16/20: Voiding 1-2x/night) STG Duration 11/18/20 (12/16/20: MET GOAL) Residential Goal (LTG) Improve ability to more easily fall back to sleep at night using relaxation techniques. (12/16/20: falling asleep is not a problem unless having cramps. Mgmt of cramps is with massager) LTG Duration 01/09/21 (12/16/20: MET GOAL ) Two Impairment Pelvic pain (constant, rated 4 /10). Short Term Goal (STG) Decrease PF pain in the morning 50%. 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 (12/22/20: Pain decreased from 4-5/10 to start to 2/10 after therapy) LTG Duration 01/09/21 (12/22/20: Improved, goal NOT MET One Impairment Pt lacks appropriate self care HEP Short Term Goal (STG) Pt will be independent in PF stretches. (10/21/20: Pt started on PF stretching with dilator) STG Duration 10/28/20 (12/16/20: MET GOAL) Residential Goal (LTG) Pt will be independent in a self care HEP of hip stretches and core/hip stabilization. (12/22/20: HEP issued: abdominal stretches, pt not started on hip stabilization and core stabilization was held due to pain) LTG Duration 01/09/21 (12/22/20: Goal partially met.) Progress Towards Goals Progress Comments Improved per Pelvic pain & Urgency/Frequency Patient Symptom Scale Questionnaire of score 21 to start, decreasing to 14 (20 or above 91%, and 10-14 74% likelihood of positive PST. Pain in lower abdomen prior to therapy 4-11/14, post therapy 08/17. Assessment Summary Assessment Pt has overall shown some improvement in her pelvic pain symptoms (see above). Pt was only able to partially met her goals due to early discharge with pt moving from the area. Physical Therapy Plan Other Referrals/Consults Referrals/Consults Recommended Physical therapy in new living location, psychological care for anxiety, stress; and massage therapy for general muscle relaxation, possible nutrition consult. Recommend assessment of Anterior vena cava in abdominal region due to palpation of pulse appears very superficial to abdomen. Discharge Physical Therapy Discharge Reasons Patient Request Discharge Comments Pt is moving from the area due to spouse reassignment to [facility]. Pt obtained some relief from her pain, but would benefit from continued physical therapy, psychological care for her anxiety and stress and massage therapy for general muscle relaxation. Thank you for your referral.
== END 2020-12-23 13:29 | disposition home or self-care (01) ==
LOC: PHYS 11:15
PROVIDERS: Family Provider Registered Nurse; PCP Registered Nurse; Referring Provider Obstetrics & Gynecology; Visit Provider Obstetrics & Gynecology
DX: M62.89 Other specified disorders of muscle (principal); R29.3 Abnormal posture; M25.652 Stiffness of left hip, not elsewhere classified; M25.651 Stiffness of right hip, not elsewhere classified; R10.30 Lower abdominal pain, unspecified
CPT/HCPCS: 97110; 97140; 97162; 97535